=== PATIENT | male | born 1940 | race Hispanic/Latino ===

== ENCOUNTER 2020-02-05 11:30 | Observation (INO) | payer MEDICARE, OTHER ==
[~2020-02-05] VITALS: Ht 175.3 cm; Wt 81.6 kg
[~2020-02-05 11:30] MED LIST: GLUCOPHAGE500 MG PO; QUINAPRIL HCL10 MG PO; SIMVASTATIN10 MG PO
--- OUTSIDE RECORDS SUMMARY | 2020-02-05 11:34 | XMS REPORT | Summary of Care ---
Author ALEXANDREA Mooney M.A. Organization Unknown Address [facility] Phone Unavailable Care Team Providers Care Creative Technologist Name Role Phone FOREST Storm, LEONARDO Unavailable Unavailable KEVAN GOULD Unavailable Unavailable FOREST JAMES SD, LEONARDO Holloway Unavailable Unavailable Nathaniel Franco MD Unavailable Unavailable SUNITA JAMES, ALETA Mcknight Unavailable Unavailable ROCHELLE JAMES SD, JANEEN Unavailable Unavailable Unavailable Unavailable Functional Status Name Dates Details Functional status health issues are not documented Status: Name Dates Details Cognitive status health issues are not d ocumented Status: Problems Name Dates Details Need for pneumococcal vaccination (V03.8 2, Z23) Status: Active Insomnia (780.52, G47.00) Status: Active Encounter for diabetic foot exam (250.00 , E11.9) Status: Active Erectile dysfunction (607.84, N52.9) Status: Active Influenza vaccine needed (V04.81, Z23) Status: Active Counseling regarding advanced directives (V65.49, Z71.89) Status: Active Annual physical exam (V70.0, Z00.00) Status: Active Advance directive discussed with patient (V65.49, Z71.89) Status: Active Enlarged prostate without lower urinary tract symptoms (luts) (600.00, N40.0) Status: Active Hip osteoarthritis (715.95, M16.9) Status: Active Seasonal allergic rhinitis (477.9, J30.2 ) Status: Active Left ear pain (388.70, H92.02) Status: Active Left otitis media (382.9, H66.92) Status: Active Vitiligo (709.01, L80) Status: Active BMI 27.0-27.9,adult (V85.23, Z68.27) Status: Active Left upper quadrant pain (789.02, R10.12 ) Status: Active Diabetes mellitus type 2, controlled (25 0.00, E11.9) Status: Active Hyperlipidemia (272.4, E78.5) Status: Active Peripheral vascular disease (443.9, I73. 9) Status: Active Benign prostatic hyperplasia with lower urinary tract symptoms (600.01, N40.1) Status: Active Essential (primary) hypertension (401.9, I10) Status: Active Type 2 diabetes mellitus (250.00, E11.9) Status: Active Medications Name Dates Details Quinapril HCl - 20 MG Oral Tablet TAKE 1/2 (ONE-HALF) TABLET BY MOUTH ONCE DAILY Quantity: 45 LEONARDO GARG M.D. * Start : 04-Dec-2014 Active Simvastatin 20 MG Oral Tablet TAKE 1 TABLET BY MOUTH AT BEDTIME * Quantity: 90 Refills: 1 LEONARDO GARG M.D. * Start : 06-Apr-2014 Active metFORMIN HCl - 500 MG Oral Tablet TAKE 2 TABLETS BY MOUTH TWICE DAILY DIRECTED * Quantity: 360 Refills: 1 LEONARDO GARG M.D. * Start : 22-May-2013 Active Glimepiride 2 MG Oral Tablet TAKE 1 TABLET TWICE DAILY With meals * Quantity: 180 Refills: 1 LEONARDO GARG M.D. * Start : 31-May-2015 Active Tamsulosin HCl - 0.4 MG Oral Capsule TAKE 1 CAPSULE DAILY * Quantity: 90 Refills: 1 KEVAN GOULD * Start : 30-Oct-2019 Active Allergies and Adverse Reactions Name Dates Details No Known Drug Allergies (Allergy) Status : Active Past Medical History Name Dates Details History of allergic rhinitis (V12.69, Z8 7.09) Status: Resolved History of Arthralgia of temporomandibul ar joint (524.62, M26.629) Status: Resolved History of esophageal reflux (V12.79, Z8 7.19) Status: Resolved History of Impacted cerumen of right ear (380.4, H61.21) Status: Resolved History of Lightheadedness (780.4, R42) Status: Resolved History of Localized primary osteoarthri tis of lower leg, right (715.16, M17.11) Status: Resolved History of Lower abdominal pain (789.09, R10.30) Status: Resolved History of Pain in joint of left shoulde r (719.41, M25.512) Status: Resolved History of Right knee pain (719.46, M25. 561) Status: Resolved History of Symptoms of upper respiratory infection (URI) (786.09, R09.89) Status: Resolved History of TMJ (sprain of temporomandibu lar joint) (848.1, S03.40XA) Status: Resolved Procedures Procedure Dates Details [QLH] CULTURE, URINE, ROUTINE Date: 30-Oct-2019 [QLH] URINALYSIS, COMPLETE Date: 30-Oct-2019 History of Back Surgery Completed History of Rotator Cuff Repair Completed History of Cholecystectomy Completed History of Rotator Cuff Repair Completed Comments: Completed: Approx [id number] Immunization Name Dates Details Fluzone INJ Lot #: [id number] on: 22-May-2013 Fluzone INJ Lot #: [id number] on: 29-May-2014 Pneumococcal polysaccharide vaccine, 23 valent Lot #: [id number] on: 29-May-2014 Tdap Lot #: [id number] on: 28-Sep-2014 Fluvirin INJ Lot #: [id number] on: 28-May-2015 Fluzone High-Dose 0.5 ML Intramuscular S uspension Prefilled Syringe Lot #: [id number] on: 17-Jun-2016 Prevnar 13 Intramuscular Suspension Lot #: [id number] on: 19-Oct-2016 Fluzone High-Dose 0.5 ML Intramuscular S uspension Prefilled Syringe Lot #: [id number] on: 21-Jun-2017 Fluzone High-Dose 0.5 ML Intramuscular S uspension Prefilled Syringe Lot #: [id number] on: 16-Jun-2018 Shingrix 50 MCG Intramuscular Suspension Reconstituted on: 18-Nov-2018 Shingrix 50 MCG Intramuscular Suspension Reconstituted on: 18-Jan-2019 Fluzone High-Dose 0.5 ML Intramuscular S uspension Prefilled Syringe Lot #: [id number] on: 06-Jun-2019 Family History Name Dates Details Family history of Denial Of Any Signific ant Medical History Comments: Family History Status: Active Social History Name Dates Details - Status: Name Dates Details Ex-smoker (finding) Vital Signs Date Test Result Details :55 Systolic blood pressure 133 mm[Hg] Status: Diastolic blood pressure 82 mm[Hg] Status: Heart Rate 86 /min Status: :41 Systolic blood pressure 164 mm[Hg] Status: Comments : Location: [facility] [place]; Position: Sitting Diastolic blood pressure 84 mm[Hg] Status: Comment s: Location: [facility] [place]; Position: Sitting Heart Rate 102 /min Status: Body height 68 in Status: Weight 175 lb Status: Body mass index (BMI) [Ratio] 26.61 kg/m2 Status: Body surface area Derived from formula 1.93 m2 S tatus: Body temperature 97.3 f Status: Comments: Me thod: Temporal Respiratory rate 16 /min Status: Results Date Description Value Details [id number] [O] Urine Dipstick (In Office) Glucose pos (Abnormal) LEUKOCYTES neg (Normal) NITRITE neg (Normal) UROBILINOGEN neg (Normal) PROTEIN neg (Normal) pH 6 (Abnormal) URINE BLOOD neg (Normal) SPECIFIC GRAVITY 1.010 (Abnormal) KETONES neg (Normal) BILIRUBIN neg (Normal) COLOR URINE yellow (Normal) APPEARANCE CLEAR (Normal) Plan of Care Name Dates Details Planned Observations Planned Goals not documented Planned Encounters Appointment; LEONARDO GARG M.D. On: 15-Dec-2019 9:30 Interventions Provided Medication Changes* Tamsulosin HCl - 0.4 MG Oral Capsule - Start Labs/Procedures/Imaging* [QLH] CULTURE, URINE, ROUTINE; To Be Done: 30 Oct 2019 * [QLH] URINALYSIS, COMPLETE; To Be Done: 30 Oct 2019 * [O] Urine Dipstick (In Office); Done: 30 Oct 2019 * Tobacco Use Screening; Done: 30 Oct 2019 Plan* BPH - start tamsulosin; send urine testing as above; f/u if not improving * HTN - monitor BP; continue quinapril * DM - follow DM diet; continue glimepiride and metformin per PCP recommendations; monitor glucose * F/u with PCP as scheduled in December Instructions Name Dates Details Instructions not documented Encounters Appointment; VITALY DANIEL APRN Encounter Diagnosis: Problem not documented On: 17-Dec-2017 10:00 Appointment; LEONARDO GARG M.D. Encounter Diagnosis: Problem not documented On: 10-Feb-2018 13:30 Appointment; VITALY DANIEL APRN Encounter Diagnosis: Problem not documented On: 14-Mar-2018 8:30 Appointment; LEONARDO GARG M.D. Encounter Diagnosis: Problem not documented On: 16-Jun-2018 13:30 Appointment; LEONARDO GARG M.D. Encounter Diagnosis: Problem not documented On: 16-Jun-2018 13:30 Appointment; LEONARDO GARG M.D. Encounter Diagnosis: Problem not documented On: 11-Oct-2018 10:30 Appointment; LEONARDO GARG M.D. Encounter Diagnosis: Problem not documented On: 12-Jan-2019 13:30 Appointment; LEONARDO GARG M.D. Encounter Diagnosis: Problem not documented On: 14-Apr-2019 11:00 Appointment; JANEEN BYRD M.D. Encounter Diagnosis: Problem not documented On: 27-Apr-2019 8:15 Appointment; ALETA DORSEY M.D. Encounter Diagnosis: Problem not documented On: 16-May-2019 14:00 Appointment; VITALY DANIEL APRN Encounter Diagnosis: Problem not documented On: 06-Jun-2019 8:30 Appointment; VITALY DANIEL APRN Encounter Diagnosis: Problem not documented On: 16-Jun-2019 10:15 Appointment; LEONARDO GARG M.D. Encounter Diagnosis: Problem not documented On: 14-Aug-2019 11:00 Appointment; KEVAN LADD P.A. Encounter Diagnosis: Problem not documented On: 30-Oct-2019 9:00
--- OUTSIDE RECORDS SUMMARY | 2020-02-05 11:34 | XMS REPORT | Summary of Care ---
Author Author Keshia LORD ALEXANDREA [facility] Unknown Address Unknown Phone Unavailable Care Team Providers Care Wiping Rag Washer Name Role Phone FOREST Storm, LEONARDO Unavailable Unavailable JULEE P.AKEVAN Tejada Unavailable Unavailable FOREST JAMES SD, LEONARDO Holloway [...] TWICE DAILY DIRECTED * Quantity: 360 Refills: 0 LEONARDO GARG M.D. * Start : 22-May-2013 [...] S03.40XA) Status: Resolved Procedures Procedure Dates Details [QL] CULTURE, URINE, ROUTINE Date: 30-Oct-2019 [QLH] URINALYSIS, COMPLETE Date: 30-Oct-2019 History of Back Surgery Completed History of Rotator Cuff Repair Completed History of Cholecystectomy Completed History of Rotator Cuff Repair Completed Comments: Completed: Approx [id number] Immunization Name Dates Details Fluzone INJ Lot #: [id number] on: 22-May-2013 Fluzone INJ Lot #: [id number] on: 29-May-2014 Pneumococcal polysaccharide vaccine, 23 valent Lot #: [id number] on: 29-May-2014 Tdap Lot #: [id number] on: 28-Sep-2014 Fluvirin INJ Lot #: [id number] on: 28-May-2015 Fluzone High-Dose 0.5 ML Intramuscular S uspension Prefilled Syringe Lot #: [id number] on: 17-Jun-2016 Prevnar 13 Intramuscular Suspension Lot #: [id number] on: 19-Oct-2016 Fluzone High-Dose 0.5 ML Intramuscular S uspension Prefilled Syringe Lot #: [id number] on: 21-Jun-2017 Fluzone High-Dose 0.5 ML Intramuscular S uspension Prefilled Syringe Lot #: [id number] on: 16-Jun-2018 Shingrix 50 MCG Intramuscular Suspension Reconstituted on: 18-Nov-2018 Shingrix 50 MCG Intramuscular Suspension Reconstituted on: 18-Jan-2019 Fluzone High-Dose 0.5 ML Intramuscular S uspension Prefilled Syringe Lot #: [id number] on: 06-Jun-2019 Family History Name Dates Details [...] pressure 164 mm[Hg] Status: Comments : Location: [facility] [place]; Position: Sitting Diastolic blood pressure 84 mm[Hg] Status: Comment s: Location: [facility] [place]; Position: Sitting Heart Rate 102 /min Status: Body height 68 in Status: Weight 175 lb Status: Body mass index (BMI) [Ratio] 26.61 kg/m2 Status: Body surface area Derived from formula 1.93 m2 S tatus: Body temperature 97.3 f Status: Comments: Me thod: Temporal Respiratory rate 16 /min Status: Results Date Description Value Details [id number] [O] Urine Dipstick (In Office) Glucose pos [...] On: 15-Dec-2019 9:30 Interventions Provided Medication Changes* metFORMIN HCl - 500 MG Oral Tablet - Renew Instructions Name Dates Details Instructions not documented [...]
--- OUTSIDE RECORDS SUMMARY | 2020-02-05 11:34 | XMS REPORT ---
Author Author [facility] t Organization [facility] Address [address] [place] [address] Dr. Pringle [address] [place] [phone] Phone Unavailable Care Team Providers Care Irrigation District Manager Name Role Phone LEONARDO GARG MD PCP LEONARDO GARG M.D. Attphys Unavailable KEVAN LADD P.A. Attphys Unavailable VITALY DANIEL APRN Attphys Unavailable ALETA DORSEY M.D. Attphys Unavailable JANEEN BYRD M.D. Attphys Unavailable Osiel NOEL Attphys Unavailable VITALY DANIEL NP Attphys Unavailable LEXI GALICIA M.D. Attphys Unavailable ARON WHITMORE NP Attphys Unavailable OTONIEL MELISSA M.D. Attphys Unavailable ASUNCION GUALLPA M.D. Attphys Unavailable DUC LANDIS D.O. Attphys Unavailable Payers Payer Name Policy Type Policy Number Effective Date Expiration Date renee [employer] Medicare Advantage [id number] [facility] Problems Condition Name Condition Details Condition Category Status Onset Date Resolution Date Last Treatment Date Treating Clinician Comments Source History of allergic rhinitis History of allergic rhinitis Problem Re solved [facility] History of Arthralgia of temporomandibular joint Histo ry of Arthralgia of temporomandibular joint Problem Resolved [facility] History of esophageal reflux History of esophageal reflux Problem Re solved [facility] History of Impacted cerumen of right ear History of Im pacted cerumen of right ear Problem Resolved [facility] History of Lightheadedness History of Lightheadedness Problem Resolved [facility] History of Localized primary osteoarthritis of lower l eg, right History of Localized primary osteoarthritis of lower leg, right Problem Resolved [facility] History of Lower abdominal pain History of Lower abdominal pain Problem Resolved [facility] History of Pain in joint of left shoulder History of P ain in joint of left shoulder Problem Resolved [facility] History of Right knee pain History of Right knee pain Problem Resolved [facility] History of Symptoms of upper respiratory infection (UR I) History of Symptoms of upper respiratory infection (URI) Problem Resolved [facility] History of TMJ (sprain of temporomandibular joint) His tory of TMJ (sprain of temporomandibular joint) Problem Resolved [facility] Influenza vaccine needed Influenza vaccine needed Problem Active [facility] Insomnia Insomnia Problem Active [facility] Type 2 diabetes mellitus Type 2 diabetes mellitus Problem Active [facility] Erectile dysfunction Erectile dysfunction Problem Active [facility] Advance directive discussed with patient Advance direc tive discussed with patient Problem Active [facility] Annual physical exam Annual physical exam Problem Active [facility] Hip osteoarthritis Hip osteoarthritis Problem Active [facility] Seasonal allergic rhinitis Seasonal allergic rhinitis Problem Active [facility] Left ear pain Left ear pain Problem Active [facility] Left otitis media Left otitis media Problem Active [facility] Vitiligo Vitiligo Problem Active [facility] BMI 27.0-27.9,adult BMI 27.0-27.9,adult Problem Active [facility] Peripheral vascular disease Peripheral vascular disease Problem Active [facility] Benign prostatic hyperplasia with lower urinary tract symptoms Benign prostatic hyperplasia with lower urinary tract symptoms Problem Active [facility] Left upper quadrant pain Left upper quadrant pain Problem Active [facility] Essential (primary) hypertension Essential (primary) hypertensio n Problem Active [facility] Enlarged prostate without lower urinary tract symptoms (luts) Enlarged prostate without lower urinary tract symptoms (luts) Problem Active [facility] Hyperlipidemia Hyperlipidemia Problem Active [facility] Vaccines Prophylactic Need Against Influenza Vaccines Prophylactic Need Against Influenza Active 10/04/2013 [facility] Problem Active 2013-10-04 23:13:12 [facility] Type 2 Diabetes Mellitus Type 2 Diabetes Mellitus Active 10/04/2013 [facility] Problem Active 2013-10-04 23:13: 12 [facility] Hypertension Hype rtension Active 10/04/2013 [facility] Problem Active 2013-10-04 23:13:12 [facility] Hyperlipidemia Hype rlipidemia Active 10/04/2013 [facility] Problem Active 2013-10-04 23:13:12 [facility] Bilious Diarrhea Bili ous Diarrhea Active 10/04/2013 [facility] Problem Active 2013-10-04 23:13:12 [facility] TMJ Pain TMJ Pain Active 10/04/2013 [facility] Problem Active 2013-10-04 23:13:12 [facility] Allergies, Adverse Reactions, Alerts Allergy Name Allergy Type Status Severity Reaction(s) Onset Date Inacti ve Date Treating Clinician Comments Source No Known Drug Allergies No Known Drug Allergies Active [facility] Family History Family Member Diagnosis Comments Start Date Stop Date Source Unknown Family Member Family history of Denial Of Any Significant Medical History Family History [facility] Social History Social Habit Start Date Stop Date Quantity Comments Source Sex Assigned At Angie lemos Edgardo Alcohol intake 2016-06-16 00:00:00 2016-06-16 00:00:00 Current drinker of alcohol (finding) Darinel Reynoso Alcohol Comment 2016-06-16 00:00:00 2016-06-16 00:00:00 4 drinks per week Darinel Reynoso Social History 2013-10-04 23:13:12 2013-10-04 23:13:12 [facility] Smoking Status Start Date Stop Date Source Ex-smoker (finding) [facility] Never smoker Darinel moody Medications Ordered Medication Name Filled Medication Name Start Date Stop Da te Current Medication? Ordering Clinician Indication Dosage Frequency Signature (SIG) Comments Components Source Tamsulosin HCl - 0.4 MG Oral Capsule Tamsulosin HCl - 0.4 MG Oral Capsule 2019-10-30 00:00:00 Yes KEVAN Marie 1 QD TAKE 1 CAPSULE DAILY [facility] metFORMIN (GLUCOPHAGE) 500 MG tablet 2016-04-28 00:00:00 Yes Darinel Reynoso Glimepiride 2 MG Oral Tablet Glimepiride 2 MG Oral Tablet 2015-05-08 00:00:00 Yes LEONARDO GARG M.D. 1 Q0.5D TAKE 1 TABLET TWICE DAILY Wit h meals [facility] Quinapril HCl - 20 MG Oral Tablet Quinapril HCl - 20 MG Oral Tablet 2014-12-04 00:00:00 Yes LEONARDO GARG M.D. T TRISH 1/2 (ONE-HALF) TABLET BY MOUTH ONCE DAILY. [facility] Simvastatin 20 MG Oral Tablet Simvastatin 20 MG Oral Tablet 2013 00:00:00 Yes LEONARDO GARG M.D. TAKE 1 TABLET BY MOUT H AT BEDTIME [facility] Simvastatin 10 MG Oral Tablet 2013-09-22 22:46:42 Yes (Active) [facility] Naproxen 375 MG Oral Tablet 2013-09-21 06:00:00 Yes ; Start Date: 09/21/2013; End Date: 09/28/2013 (Active) [facility] Quinapril HCl 20 MG Oral Tablet 2013-05-22 22:16:25 Yes (Active) [facility] MetFORMIN HCl 500 MG Oral Tablet 2013-05-22 05:00:00 Yes ; Start Date: 05/22/2013; End Date: (Active) [facility] metFORMIN HCl - 500 MG Oral Tablet metFORMIN HCl - 500 MG Or al Tablet 2013-05-22 00:00:00 Yes LEONARDO GARG M.D. T TRISH 2 TABLETS BY MOUTH TWICE DAILY DIRECTED [facility] Quinapril HCl 20 MG Oral Tablet Yes ; Start Date: ; End Date: (Active) [facility] Simvastatin 10 MG Oral Tablet Yes ; Start Date: ; End Date: (Active) [facility] Immunizations Ordered Immunization Name Filled Immunization Name Date Status Comments Source Fluzone High-Dose 0.5 ML Intramuscular Suspension Prefilled Syringe 2019-06-06 08:36:00 Completed [facility] Shingrix 50 MCG Intramuscular Suspension Reconstituted 2019-01-18 00:00:00 Completed [facility] Shingrix 50 MCG Intramuscular Suspension Reconstituted 2018-11-18 00:00:00 Completed [facility] Fluzone High-Dose 0.5 ML Intramuscular Suspension Prefilled Syringe 2018-06-16 16:36:00 Completed [facility] Fluzone High-Dose 0.5 ML Intramuscular Suspension Prefilled Syringe 2017-06-21 14:25:00 Completed [facility] Prevnar 13 Intramuscular Suspension 2016-10-19 14:24:00 Co mpleted [facility] Fluzone High-Dose 0.5 ML Intramuscular Suspension Prefilled Syringe 2016-06-17 16:27:00 Completed [facility] Fluvirin INJ 2015-05-28 13:33:00 [facility] 2014-09-28 13:45:00 Completed [facility] Fluzone INJ 2014-05-29 14:35:00 Completed [facility] Pneumococcal polysaccharide vaccine, 23 valent 2014-05 14:35:00 Completed [facility] Fluzone INJ 2013-05-22 15:22:00 Completed [facility] Vital Signs Vital Name Observation Time Observation Value Comments Source Systolic blood pressure 2019-10-30 08:55:00 133 mm[Hg] [facility] Diastolic blood pressure 2019-10-30 08:55:00 82 mm[Hg] [facility] Heart Rate 2019-10-30 08:55:00 86 /min [facility] Systolic blood pressure 2019-10-30 08:41:00 164 mm[Hg] Loca tion: PRIETO; Position: Sitting [facility] Diastolic blood pressure 2019-10-30 08:41:00 84 mm[Hg] Loc ation: PRIETO; Position: Sitting [facility] Heart Rate 2019-10-30 08:41:00 102 /min [facility] Body height 2019-10-30 08:41:00 68 [in_us] [facility] Weight 2019-10-30 08:41:00 175 [lb_av] [facility] Body mass index (BMI) [Ratio] 2019-10-30 08:41:00 26.61 kg/m2 [facility] Body temperature 2019-10-30 08:41:00 97.3 [degF] Method: Temporal [facility] Respiratory rate 2019-10-30 08:41:00 16 /min [facility] BP Systolic 2019-08-14 10:39:00 113 mm[Hg] Location: ESTHER Positi on: Sitting [facility] BP Diastolic 2019-08-14 10:39:00 70 mm[Hg] Location: PRIETO; Positi on: Sitting [facility] Height 2019-08-14 10:39:00 68 [in_us] [facility] Weight 2019-08-14 10:39:00 177.3 [lb_av] [facility] Body Mass Index Calculated 2019-08-14 10:39:00 26.96 kg/m2 [facility] Temperature 2019-08-14 10:39:00 97.8 [degF] Method: Oral [facility] Heart Rate 2019-08-14 10:39:00 86 /min [facility] Respiration Rate 2019-08-14 10:39:00 16 /min [facility] BP Systolic 2019-06-16 10:08:00 132 mm[Hg] Location: ROWANE; Positi on: Sitting [facility] BP Diastolic 2019-06-16 10:08:00 74 mm[Hg] Location: ROWANE; Positi on: Sitting [facility] Height 2019-06-16 10:08:00 68 [in_us] [facility] Weight 2019-06-16 10:08:00 178 [lb_av] [facility] Body Mass Index Calculated 2019-06-16 10:08:00 27.07 kg/m2 [facility] Temperature 2019-06-16 10:08:00 98.2 [degF] Method: Temporal [facility] Respiration Rate 2019-06-16 10:08:00 16 /min [facility] Heart Rate 2019-06-16 10:08:00 83 /min [facility] BP Systolic 2019-06-06 08:26:00 133 mm[Hg] Location: PRIETO; Positi on: Sitting [facility] BP Diastolic 2019-06-06 08:26:00 74 mm[Hg] Location: PRIETO; Positi on: Sitting [facility] Height 2019-06-06 08:26:00 68 [in_us] [facility] Weight 2019-06-06 08:26:00 178 [lb_av] [facility] Body Mass Index Calculated 2019-06-06 08:26:00 27.07 kg/m2 [facility] Temperature 2019-06-06 08:26:00 98.3 [degF] Method: Temporal [facility] Respiration Rate 2019-06-06 08:26:00 16 /min [facility] Heart Rate 2019-06-06 08:26:00 80 /min [facility] BP Systolic 2019-05-16 14:06:00 129 mm[Hg] Location: LUE; Positi on: Sitting [facility] BP Diastolic 2019-05-16 14:06:00 78 mm[Hg] Location: LUE; Positi on: Sitting [facility] Height 2019-05-16 14:06:00 68 [in_us] [facility] Weight 2019-05-16 14:06:00 177.5 [lb_av] [facility] Body Mass Index Calculated 2019-05-16 14:06:00 26.99 kg/m2 [facility] Temperature 2019-05-16 14:06:00 97.9 [degF] Method: Temporal [facility] Heart Rate 2019-05-16 14:06:00 95 /min Location: L Brachial Artery; [facility] Respiration Rate 2019-05-16 14:06:00 16 /min Quality: [facility] BP Systolic 2019-04-27 08:24:00 138 mm[Hg] Location: LUE; Positi on: Sitting [facility] BP Diastolic 2019-04-27 08:24:00 79 mm[Hg] Location: LUE; Positi on: Sitting [facility] Height 2019-04-27 08:24:00 68 [in_us] [facility] Weight 2019-04-27 08:24:00 173.0625 [lb_av] [facility] Body Mass Index Calculated 2019-04-27 08:24:00 26.31 kg/m2 [facility] Temperature 2019-04-27 08:24:00 97.4 [degF] Method: Temporal [facility] Heart Rate 2019-04-27 08:24:00 75 /min [facility] Respiration Rate 2019-04-27 08:24:00 16 /min [facility] BP Systolic 2019-04-14 10:27:00 126 mm[Hg] Location: LUE; Positi on: Sitting [facility] BP Diastolic 2019-04-14 10:27:00 69 mm[Hg] Location: LUE; Positi on: Sitting [facility] Height 2019-04-14 10:27:00 68 [in_us] [facility] Weight 2019-04-14 10:27:00 176.1 [lb_av] [facility] Body Mass Index Calculated 2019-04-14 10:27:00 26.78 kg/m2 [facility] Temperature 2019-04-14 10:27:00 98.1 [degF] Method: Oral [facility] Respiration Rate 2019-04-14 10:27:00 16 /min [facility] Heart Rate 2019-04-14 10:27:00 90 /min [facility] BP Systolic 2019-01-12 13:16:00 103 mm[Hg] Location: ROW[place]; Positi on: Sitting [facility] BP Diastolic 2019-01-12 13:16:00 67 mm[Hg] Location: PRIETO; Positi on: Sitting [facility] Height 2019-01-12 13:16:00 68 [in_us] [facility] Weight 2019-01-12 13:16:00 175.4 [lb_av] [facility] Body Mass Index Calculated 2019-01-12 13:16:00 26.67 kg/m2 [facility] Temperature 2019-01-12 13:16:00 98.2 [degF] Method: Oral [facility] Heart Rate 2019-01-12 13:16:00 96 /min [facility] Respiration Rate 2019-01-12 13:16:00 16 /min [facility] BP Systolic 2018-10-11 10:53:00 127 mm[Hg] Location: PRIETO; Positi on: Sitting [facility] BP Diastolic 2018-10-11 10:53:00 73 mm[Hg] Location: PRIETO; Positi on: Sitting [facility] Height 2018-10-11 10:53:00 68 [in_us] [facility] Weight 2018-10-11 10:53:00 178.1 [lb_av] [facility] Body Mass Index Calculated 2018-10-11 10:53:00 27.08 kg/m2 [facility] Temperature 2018-10-11 10:53:00 97.7 [degF] Method: Oral [facility] Heart Rate 2018-10-11 10:53:00 96 /min [facility] Respiration Rate 2018-10-11 10:53:00 16 /min [facility] BP Systolic 2018-06-16 13:21:00 125 mm[Hg] Location: LUE; Positi on: Sitting [facility] BP Diastolic 2018-06-16 13:21:00 75 mm[Hg] Location: LUE; Positi on: Sitting [facility] Height 2018-06-16 13:21:00 68 [in_us] [facility] Weight 2018-06-16 13:21:00 179.1 [lb_av] [facility] Body Mass Index Calculated 2018-06-16 13:21:00 27.23 kg/m2 [facility] Temperature 2018-06-16 13:21:00 98 [degF] Method: Oral [facility] Heart Rate 2018-06-16 13:21:00 81 /min [facility] Respiration Rate 2018-06-16 13:21:00 16 /min [facility] BP Systolic 2018-03-14 08:07:00 120 mm[Hg] Location: LUE; Positi on: Sitting [facility] BP Diastolic 2018-03-14 08:07:00 66 mm[Hg] Location: LUE; Positi on: Sitting [facility] Height 2018-03-14 08:07:00 68 [in_us] [facility] Weight 2018-03-14 08:07:00 179 [lb_av] [facility] Body Mass Index Calculated 2018-03-14 08:07:00 27.22 kg/m2 [facility] Temperature 2018-03-14 08:07:00 97.3 [degF] Method: Temporal [facility] Heart Rate 2018-03-14 08:07:00 75 /min Location: L Radial; [facility] Respiration Rate 2018-03-14 08:07:00 16 /min Quality: Normal [facility] BP Systolic 2018-02-10 13:11:00 125 mm[Hg] Location: LUE; Positi on: Sitting [facility] BP Diastolic 2018-02-10 13:11:00 73 mm[Hg] Location: LUE; Positi on: Sitting [facility] Height 2018-02-10 13:11:00 68.5 [in_us] [facility] Weight 2018-02-10 13:11:00 177.0 [lb_av] [facility] Body Mass Index Calculated 2018-02-10 13:11:00 26.52 kg/m2 [facility] Temperature 2018-02-10 13:11:00 98.3 [degF] Method: Oral [facility] Heart Rate 2018-02-10 13:11:00 92 /min [facility] Respiration Rate 2018-02-10 13:11:00 16 /min [facility] BP Systolic 2017-10-19 13:11:00 120 mm[Hg] Location: PRIETO; Positi on: Sitting [facility] BP Diastolic 2017-10-19 13:11:00 69 mm[Hg] Location: PRIETO; Positi on: Sitting [facility] Height 2017-10-19 13:11:00 68.5 [in_us] [facility] Weight 2017-10-19 13:11:00 179.1 [lb_av] [facility] Body Mass Index Calculated 2017-10-19 13:11:00 26.84 kg/m2 [facility] Temperature 2017-10-19 13:11:00 97.9 [degF] Method: Oral [facility] Heart Rate 2017-10-19 13:11:00 88 /min [facility] Respiration Rate 2017-10-19 13:11:00 16 /min [facility] BP Systolic 2017-08-20 07:40:00 132 mm[Hg] Location: ESTHER Positi on: Sitting [facility] BP Diastolic 2017-08-20 07:40:00 80 mm[Hg] Location: PRIETO; Positi on: Sitting [facility] Height 2017-08-20 07:40:00 68.5 [in_us] [facility] Weight 2017-08-20 07:40:00 175 [lb_av] [facility] Body Mass Index Calculated 2017-08-20 07:40:00 26.22 kg/m2 [facility] Temperature 2017-08-20 07:40:00 98.9 [degF] Method: Temporal [facility] Heart Rate 2017-08-20 07:40:00 87 /min [facility] Respiration Rate 2017-08-20 07:40:00 16 /min [facility] BP Systolic 2017-08-09 11:22:00 130 mm[Hg] Location: ESTHER Positi on: Sitting [facility] BP Diastolic 2017-08-09 11:22:00 76 mm[Hg] Location: PRIETO; Positi on: Sitting [facility] Height 2017-08-09 11:22:00 68.5 [in_us] [facility] Weight 2017-08-09 11:22:00 175.125 [lb_av] [facility] Body Mass Index Calculated 2017-08-09 11:22:00 26.24 kg/m2 [facility] Temperature 2017-08-09 11:22:00 98.7 [degF] Method: Temporal [facility] Heart Rate 2017-08-09 11:22:00 102 /min [facility] Respiration Rate 2017-08-09 11:22:00 16 /min Quality: Normal [facility] Procedures Procedure Date / Time Performed Performing Clinician Sour e [[facility]] CULTURE, URINE, ROUTINE 2019-10-30 00:00:00 [facility] [[facility]] URINALYSIS, COMPLETE 2019-10-30 00:00:00 [facility] [[facility]] HEMOGLOBIN A1c 2019-08-14 00:00:00 [facility] Extremity lower art Dopp bilat [place] w press [id number] 2019-08-14 00 :00:00 [facility] US Abdomen complete [id number] 2019-06-06 00:00:00 [facility]] HEMOGLOBIN A1c 2019-04-14 00:00:00 [facility] [[facility]] CBC (INCLUDES DIFF/PLT) 2019-01-12 00:00:00 [facility] [[facility]] CMP W/EGFR 2019-01-12 00:00:00 [facility] [[facility]] HEMOGLOBIN A1c 2019-01-12 00:00:00 [facility] [[facility]] LIPID PANEL 2019-01-12 00:00:00 [facility] [[facility]] MICROALBUMIN, RANDOM URINE (W/CREATININE) 2019-01-12 00:00 :00 [facility] [[facility]] TSH, 3RD GENERATION 2019-01-12 00:00:00 Un [facility] [[facility]] HEMOGLOBIN A1c 2018-10-11 00:00:00 [facility] X-ray of chest, single view 2018-08-29 00:00:[address] [address] [facility] [place] [[facility]] HEMOGLOBIN A1c 2018-06-16 00:00:00 [facility] [[facility]] MICROALBUMIN, RANDOM URINE (W/CREATININE) 2018-03-14 00:00 :00 [facility] [[facility]] CBC (INCLUDES DIFF/PLT) 2018-02-10 00:00:00 [facility] [[facility]] CMP W/EGFR 2018-02-10 00:00:00 [facility] [[facility]] HEMOGLOBIN A1c 2018-02-10 00:00:00 [facility] [[facility]] LIPID PANEL 2018-02-10 00:00:00 [facility] [[facility]] TSH, 3RD GENERATION 2018-02-10 00:00:00 Un [facility] [[facility]] HEMOGLOBIN A1c 2017-10-19 00:00:00 [facility] History of Back Surgery [facility] History of Rotator Cuff Repair [facility] History of Cholecystectomy [facility] Plan of Care Planned Activity Planned Date Details Comments Source Future Scheduled Test 2020-04-06 00:00:00 INFLUENZA VACCINE [code = INFLUENZA VACCINE] [facility] Future Scheduled Test 2005 00:00:00 65+ PNEUMOCOCCAL V ACCINE (1 of 2 - PCV13) [code = 65+ PNEUMOCOCCAL VACCINE (1 of 2 - PCV13)] [facility] Future Scheduled Test 1990 00:00:00 SHINGLES VACCINES (#1) [code = SHINGLES VACCINES (#1)] [facility] Scheduled Test Plan of Care [code = 36244-0] [facility] Future Scheduled Test Plan of Care [code = 86934-6] [facility] Encounters Start Date/Time End Date/Time Encounter Type Admission Type Attendi [facility] Facility Care Department Encounter ID Source 2019-12-15 09:30:2019-12-15 09:30:00 Appointment; LEONARDO GARG M.D. WALTON, HAROLD, M.D. [facility], [address] [id number] [facility] 2019-10-30 09:00:00 2019-10-30 09:00:00 Appointment; SAYRA LADD P.A. SPOONER, JOSEPH, P.A. [facility] [id number] [facility] 2019-08-14 11:00:00 2019-08-14 11:00:00 Appointment; LEONARDO GARG M.D. WALTON, HAROLD, M.D. [facility], [address] [id number] [facility] 2019-06-16 10:15:00 2019-06-16 10:15:00 Appointment; MONICA DANIEL APRN HOANG, CHRISTINA, APRN [facility], [address] [id number] [facility] 2019-06-06 08:30:00 2019-06-06 08:30:00 Appointment; MONICA DANIEL APRN HOANG, CHRISTINA, APRN [facility], [address] [id number] [facility] 2019-05-16 14:00:00 2019-05-16 14:00:00 Appointment; JAMES DORSEY M.D. PERKISON, WILLIAM, M.D. [facility] [id number] [facility] 2019-04-27 08:15:00 2019-04-27 08:15:00 Appointment; JANEEN BYRD M.D. VAZQUEZ, NOEMI, M.D. [facility] [id number] [facility] 2019-04-14 11:00:00 2019-04-14 11:00:00 Appointment; LEONARDO GARG M.D. WALTON, HAROLD, M.D. [facility], [address] [id number] [facility] 2019-01-12 13:30:00 2019-01-12 13:30:00 Appointment; GARGLEONARDO M.D. WALTON, HAROLD, M.D. [facility] [id number] [facility] 2018-10-11 10:30:00 2018-10-11 10:30:00 Appointment; LEONARDO GARG M.D. WALTON, HAROLD, M.D. [facility] [id number] [facility] 2018-08-29 10:20:00 2018-08-29 14:20:00 Departed Emergency Room 1 IRA NOEL [facility] [id number] [facility] 2018-06-16 13:30:00 2018-06-16 13:30:00 Appointment; LEONARDO GARG M.D. WALTON, HAROLD, M.D. [facility] [id number] [facility] 2018-06-16 13:30:00 2018-06-16 13:30:00 Appointment; LEONARDO GARG M.D. WALTON, HAROLD, M.D. [facility] [id number] [facility] 2018-03-14 08:30:00 2018-03-14 08:30:00 Appointment; MONICA DANIEL, VITALY ALDANA APRN [facility] [id number] [facility] 2018-02-10 13:30:00 2018-02-10 13:30:00 Appointment; LEONARDO GARG M.D. WALTON, HAROLD, M.D. [facility] [address] [id number] [facility] 2017-12-17 10:00:00 2017-12-17 10:00:00 Appointment; MONICA DANIEL APRN HOANG, CHRISTINA, APRN [facility] [id number] [facility] 2017-10-19 13:15:00 2017-10-19 13:15:00 Appointment; LEONARDO GARG M.D. WALTON, HAROLD, M.D. [facility] [id number] [facility] 2017-08-20 07:30:00 2017-08-20 07:30:00 Appointment; MONICA DANIEL NP HOANG, CHRISTINA, NP [facility] [address] [id number] [facility] 2017-08-09 11:00:00 2017-08-09 11:00:00 Appointment; ALESIA GALICIA M.D. WILLISTON, HUBERT, M.D. [facility] [id number] [facility] 2017-06-21 13:30:00 2017-06-21 13:30:00 Appointment; LEONARDO GARG M.D. WALTON, HAROLD, M.D. [facility] UTP [id number] [facility] 2017-02-17 09:30:00 2017-02-17 09:30:00 Appointment; MONICA DANIEL NP HOANG, CHRISTINA, NP UTP UTP [id number] [facility] 2016-10-19 13:15:00 2016-10-19 13:15:00 Appointment; LEONARDO GARG M.D. WALTON, HAROLD, M.D. [facility]TP [id number] [facility] 2016-06-25 18:45:00 2016-06-25 18:45:00 Appointment; ARON WHITMORE NP TRAN, THUY, NP UTP UTP [id number] [facility] 2016-06-17 15:30:00 2016-06-17 15:30:00 Appointment; LEONARDO GARG M.D. WALTON, HAROLD, M.D. [facility] UTP [id number] [facility] 2016-01-30 12:45:00 2016-01-30 12:45:00 Appointment; LEONARDO GARG M.D. WALTON, HAROLD, M.D. [facility] [address] [id number] [facility] 2015-12-26 14:00:00 2015-12-26 14:00:00 Appointment; OTONIEL MELISSA M.D. HUANG, EDDIE, M.D. [facility] UTP [id number] [facility] 2015-12-19 14:00:00 2015-12-19 14:00:00 Appointment; OTONIEL MELISSA M.D. HUANG, EDDIE, M.D. [facility] UTP [id number] [facility] 2015-12-12 14:00:00 2015-12-12 14:00:00 Appointment; OTONIEL MELISSA M.D. HUANG, EDDIE, M.D. U[facility] UTP [id number] [facility] 2015-11-21 15:30:00 2015-11-21 15:30:00 Appointment; OTONIEL MELISSA M.D. HUANG, EDDIE, M.D. [facility] UTP [id number] [facility] 2015-11-04 11:15:00 2015-11-04 11:15:00 Appointment; KARYN GUALLPA M.D. BORTOLOTTI, JULIE, M.D. [facility] UTP [id number] [facility] 2015-10-03 12:00:00 2015-10-03 12:00:00 Appointment; MONICA DANIEL NP HOANG, CHRISTINA, NP UTP UTP [id number] [facility] 2015-08-19 14:45:00 2015-08-19 14:45:00 Appointment; DUC LANDIS D.O. YEH, SHAO-CHUN, D.O. UTP UTP [id number] [facility] 2014-01-22 13:15:00 2013-10-04 23:13:12 FUP, Provider: LEONARDO SERNA, Status: Dharmesh, Time: 1:15 PM [facility] [id number] [facility] 2013-10-04 17:13:12 2013-10-04 23:13:12 AUDIT [facility] [id number] [facility] 2013-10-04 17:13:12 2013-10-04 17:13:12 Outpatient MHIEA LT [facility]IEALT [id number] 2013-09-25 15:32:16 2013-09-25 21:32:15 AUDIT [facility] [id number] [facility] 2013-09-25 15:32:16 2013-09-25 15:32:15 Outpatient MHIEA LT [facility]IEALT [id number] 2013-09-22 16:46:43 2013-09-22 22:46:42 AUDIT MHIEALT [facility] [id number] [facility] 2013-09-22 16:46:43 2013-09-22 16:46:42 Outpatient MHIEA LT [facility]IEALT [id number] 2013-09-21 13:34:14 2013-09-21 19:34:13 AUDIT [facility]ALT [id number] [facility] 2013-09-21 13:34:14 2013-09-21 13:34:13 Outpatient MHIEA LT [facility]IEALT [id number] 2013-09-21 12:45:00 2013-05-22 22:16:25 FUP, Provider: LEONARDO SERNA, Status: Pen, Time: 12:45 PM [facility] [id number] [facility] 2013-05-22 17:16:26 2013-05-22 22:16:25 AUDIT [facility] IEALT [id number] [facility] 2013-05-22 17:16:26 2013-05-22 17:16:25 Outpatient MHIEA LT MHIEALT [id number] Results Test Description Test Time Test Comments Results Result Comments Source [O] Urine Dipstick (In Office) 2019-10-30 09:26:00 Test Item Glucose (test code = Glucose) pos A LEUKOCYTES (test code = LEUKOCYTES) neg N NITRITE; Normal (test code = 78598-8) neg N UROBILINOGEN; Normal (test code = 86405-6) neg N PROTEIN; Normal (test code = 87567-2) neg N pH (test code = pH) 6 A URINE BLOOD; Normal (test code = 14814-4) neg N SPECIFIC GRAVITY; Abnormal (test code = 2965-2) 1.010 A KETONES; Normal (test code = 47284-5) neg N BILIRUBIN; Normal (test code = 44649-7) neg N COLOR URINE; Normal (test code = 5778-6) yellow N APPEARANCE; Normal (test code = 5767-9) CLEAR N [facility]] URINALYSIS, [id number] 00:00:00* Test Item Value Reference Range Interpretation Comments COLOR; Normal (test code = 5778-6) YELLOW YELLOW N APPEARANCE (test code = APPEARANCE) CLEAR CLEAR N SPECIFIC GRAVITY; Normal (test code = 2965-2) 1.014 1.001-1. 035 N PH; Normal (test code = 2756-5) 6.0 5.0-8.0 N GLUCOSE; Abnormal (test code = 1547-9) 2+ NEGATIVE A BILIRUBIN; Normal (test code = 30857-1) NEGATIVE NEGATIVE N KETONES; Normal (test code = 09474-0) NEGATIVE NEGATIVE N OCCULT BLOOD; Normal (test code = 52864-6) NEGATIVE NEGATIVE N PROTEIN; Normal (test code = 28412-5) NEGATIVE NEGATIVE N NITRITE; Normal (test code = 90023-4) NEGATIVE NEGATIVE N LEUKOCYTE ESTERASE (test code = LEUKOCYTE ESTERASE) NEGATIVE NE GATIVE N WBC; Normal (test code = 6690-2) NONE SEEN < OR = 5 N RBC; Normal (test code = 789-8) NONE SEEN < OR = 2 N SQUAMOUS EPITHELIAL CELLS; Normal (test code = 62469-3) NONE SEEN < OR = 5 N BACTERIA; Normal (test code = 630-4) NONE SEEN NONE SEEN N HYALINE CAST; Normal (test code = 76478-7) NONE SEEN NONE SEEN N [facility]] CULTURE, URINE, [id number] 00:00:00* Test Item Value Reference Range Interpretation Comments CULTURE (test code = CULTURE) See Comment CULTURE, URINE, ROUTINE Micro Number: [id number] Test Status: Final Specimen Source: URINE Specimen Quality: Adequate Result: Multiple organisms present, each less than 10,000 CFU/mL. These organisms, commonly found on external and internal genitalia, are considered to be colonizers. No further testing performed. [facility]icians[facility] Extremity lower art Dopp bilat [employer] w press [id number] 2019-08-21 13:02:00Please refer to heart lab report, located under Vascular in CARE4.--Electronically Signed by: Bridger Valentin 08/21/1917:29FINAL REPORTUn[facility]] HEMOGLOBIN A1c 2019-08-14 12:56:00* Test Item Value Reference Range Interpretation Comments HEMOGLOBIN A1c; Above High Threshold (test code = 4548-4) 7.8 {% of total} <5.7 For someone without known diabetes, a he moglobin H4iaerun of 6.5% or greater indicates that they may have diabetes and this should be confirmed with a follow-up test. For someone with known diabetes, a value <7% indicates that their diabetes is well controlled and a value greater than or equal to 7% indicates suboptimal control. A1c targets should be individualized based on duration of diabetes, age, comorbid conditions, and other considerations. Currently, no consensus exists regarding use ofhemoglobin A1c for diagnosis of diabetes for children. [facility] Abdomen complete [id number] 08:35:00EXAM: US ABDOMEN COMPLETEDATE: 06/12/2019 8:35 CDTINDICATION: - R10.12 Left upper quadrant painADDITIONAL INFORMATION: None.COMPARISON: None.TECHNIQUE: Multip lanar grayscale and color Doppler ultrasound of the abdomen.FINDINGS:Liver:Span: 14.8 cmEchogenicity: Increased throughout.Surface nodularity: Normal.Mass (size and location): None.Portal vein: 13.3 mm with hepatopedal flow.Bile ducts: Com mon bile duct diameter: 5.6 mm Intrahepatic ducts: Normal.Gallbladder: Postcho lecystectomy.Pancreas: Head and Body: Normal. Tail: obscured by overlying Burak pleen: Craniocaudal length: 11.5 cm with no focal mass.Right kidney: Size: 11 x 5.6 x 5.8 cmHydronephrosis: None.Echogenicity: Normal.Mass/Stone/Cyst (size and location): None.Left kidney: Size: 10.6 x 4.6 x 5.3 cmHydronephrosis: N one.Echogenicity: Normal.Mass/Stone/Cyst (size and location): None.Abdominal aor ta and IVC: The aorta is 2.3 cm in AP dimension proximally. It tapers normally. Views ofthe IVC were unremarkable.Ascites: NoneIMPRESSION:1. Increased echogen icity of the liver. This may represent hepatic steatosis.2. The portal vein is s lightly dilated. This is nonspecific but could be anearly sign of portal venous hypertension.3. No significant abnormality identified in the left upper quadrant .--Read by: Sal Bella MDDictated Date/time: 06/12/19 09:25Electronica lly Signed by: Sal Bella MD 06/12/1909:35FINAL REP ORTUnCentral [facility] Medical Center [facility]] HEMOGLOBIN [id number] 14:17:00* Test Item Value Reference Range Interpretation Comments HEMOGLOBIN A1c; Above High Threshold (test code = 4548-4) 7.2 {% of total} <5.7 For someone without known diabetes, a he [facility] K7cagmpq of 6.5% or greater indicates that they may have diabetes and this should be confirmed with a follow-up test. For someone with known diabetes, a value <7% indicates that their diabetes is well controlled and a value greater than or equal to 7% indicates suboptimal control. A1c targets should be individualized based on duration of diabetes, age, comorbid conditions, and other considerations. Currently, no consensus exists regarding use ofhemoglobin A1c for diagnosis of diabetes for children. [facility]] LIPID [id number] 00:00:00* Test Item Value Reference Range Interpretation Comments CHOLESTEROL, TOTAL; Normal (test code = 2093-3) 118 mg/dl <200 N HDL CHOLESTEROL; Normal (test code = 2085-9) 42 mg/dl >40 N TRIGLYCERIDES; Normal (test code = 2571-8) 129 mg/dl <150 N LDL-CHOLESTEROL; Normal (test code = 16034-5) 55 {MG/DL SAILAJA} N Reference range: <100 Desirable range <100 mg/dL for primary prevention; <70 mg/dL for patients with CHD or diabetic patients with > or = 2 CHD risk factors. LDL-C is now calculated using the Salvador-Mendez calculation, which is a validated novel method providing better accuracy than the Friedewald equation in the estimation of LDL-C. Salvador CLINTON et al. [place]. 2013;310(19): 1338-9555 (http ://education.[employer].com/faq/PEO860) CHOL/HDLC RATIO (test code = CHOL/HDLC RATIO) 2.8 {CALC} <5.0 N NON HDL CHOLESTEROL (test code = NON HDL CHOLESTEROL) 76 {MG/DL CA L} <130 N For patients with diabetes plus 1 major ASCVD risk factor, treating to a non-HDL-C goal of <100 mg/dL (LDL-C of <70 mg/dL) is considered a therapeutic option. [facility]] MICROALBUMIN, RANDOM URINE (W/CREATININE) 2019-01-12 00:00:00* Test Item Value Reference Range Interpretation Comments CREATININE, RANDOM URINE (test code = CREATININE, RANDOM URINE) 62 mg/dl 20-320 N MICROALBUMIN (test code = MICROALBUMIN) 0.6 mg/dl N Reference RangeNot established MICROALBUMIN/CREATININE RATIO, RANDOM UR INE (test code = MICROALBUMIN/CREATININE RATIO, RANDOM URINE) 10 {MCG/MG CRE} <30 N The ADA de fines abnormalities in albuminexcretion as follows: Category Result (mcg/mg creatinine) Normal <30Microalbuminuria 30-299 Clinical albuminuria > OR = 300 The ADA recommends that at least two of threespecimens collected within a 3-6 month period beabnormal before considering a patient to bewithin a diagnostic category. [facility]] CMP [id number] 00:00:00* Test Item Value Reference Range Interpretation Comments GLUCOSE; Above High Threshold (test code = 1547-9) 159 mg/dl 65- 99 Fasting reference interval For someone without known diabetes, a glucosevalue >125 mg/dL indicates that they may havediabetes and this should be confirmed with afollow- up test. UREA NITROGEN (BUN) (test code = UREA NITROGEN (BUN)) 20 mg/dl 7-25 N CREATININE (test code = CREATININE) 0.97 mg/dl 0.70-1.18 N For patients >49 years of age, the reference limitfor Creatinine is approximately 13% higher for peopleidentified as -Gabonese. eGFR NON- (test code = eGFR NON-MOISES N GABONESE) 74 {ML/MIN/1.7} > OR = 60 N eGFR (test code = eGFR ) 86 {ML/MIN/1.7} > OR = 60 N BUN/CREATININE RATIO (test code = BUN/CREATININE RATIO) NOT APPLICA BLE 6-22 SODIUM (test code = SODIUM) 139 mmol/L 135-146 N POTASSIUM (test code = POTASSIUM) 4.5 mmol/L 3.5-5.3 N CHLORIDE (test code = CHLORIDE) 105 mmol/L 98-110 N CARBON DIOXIDE (test code = CARBON DIOXIDE) 25 mmol/L 20-32 N CALCIUM (test code = CALCIUM) 9.6 mg/dl 8.6-10.3 N PROTEIN, TOTAL (test code = PROTEIN, TOTAL) 6.8 g/dl 6.1-8.1 N ALBUMIN (test code = ALBUMIN) 4.6 g/dl 3.6-5.1 N GLOBULIN (test code = GLOBULIN) 2.2 {G/DL CALC} 1.9-3.7 N ALBUMIN/GLOBULIN RATIO (test code = ALBUMIN/GLOBULIN RATIO) 2.1 {CALC} 1.0-2.5 N BILIRUBIN, TOTAL; Normal (test code = 90978-9) 0.5 mg/dl 0.2-1.2 N ALKALINE PHSPHATASE (test code = ALKALINE PHSPHATASE) 48 u/l 40-115 N AST; Normal (test code = 1916-6) 12 u/l 10-35 N ALT; Normal (test code = 1742-6) 11 u/l 9-46 N [facility]] CBC (INCLUDES DIFF/PLT)2019-01-12 00:00:00* Test Item Value Reference Range Interpretation Comments WHITE BLOOD CELL COUNT (test code = WHITE BLOOD CELL COUNT) 5.8 {Thousand/u} 3.8-10.8 N RED BLOOD CELL COUNT (test code = RED BLOOD CELL COUNT) 4.66 {Million/uL} 4.20-5.80 N HEMAGLOBIN; Normal (test code = 32232-9) 13.7 g/dl 13.2-17.1 N HEMATOCRIT; Normal (test code = 4544-3) 40.1 % 38.5-50.0 N MCV; Normal (test code = 787-2) 86.1 fL 80.0-100.0 N MCHC; Normal (test code = 70232-8) 34.2 g/dl 32.0-36.0 N RDW; Normal (test code = 788-0) 13.3 % 11.0-15.0 N PLATELET COUNT; Normal (test code = 777-3) 225 {Thousand/u} 140-400 N MPV; Normal (test code = 56981-0) 11.0 fL 7.5-12.5 N ABSOLUTE NEUTROPHILS (test code = ABSOLUTE NEUTROPHILS) 3654 {cells/uL} 5700-2689 N ABSOLUTE LYMPHOCYTES (test code = ABSOLUTE LYMPHOCYTES) 1363 {cells/uL} 850-3900 N ABSOLUTE MONOCYTES (test code = ABSOLUTE MONOCYTES) 481 {cells/uL} 200-950 N ABSOLUTE EOSINOPHILS (test code = ABSOLUTE EOSINOPHILS) 249 {cells/ uL} 15-500 N ABSOLUTE BASOPHILS (test code = ABSOLUTE BASOPHILS) 52 {cells/uL} 0 -200 N NEUTROPHILS (test code = NEUTROPHILS) 63 % N LYMPHOCYTES (test code = LYMPHOCYTES) 23.5 % N MONOCYTES; Normal (test code = 95196-0) 8.3 % N EOSINOPHILS; Normal (test code = 75116-3) 4.3 % N BASOPHILS; Normal (test code = 13769-2) 0.9 % N [facility]] TSH, 3RD [id number] 00:00:00* Test Item Value Reference Range Interpretation Comments TSH; Normal (test code = 41022-7) 1.86 {MIU/L} 0.40-4.50 N [facility]] HEMOGLOBIN [id number] 00:00:00* Test Item Value Reference Range Interpretation Comments HEMOGLOBIN A1c; Above High Threshold (test code = 4548-4) 7.2 {% of total} <5.7 For someone without known diabetes, a he moglobin O2axapra of 6.5% or greater indicates that they may have diabetes and this should be confirmed with a follow-up test. For someone with known diabetes, a value <7% indicates that their diabetes is well controlled and a value greater than or equal to 7% indicates suboptimal control. A1c targets should be individualized based on duration of diabetes, age, comorbid conditions, and other considerations. Currently, no consensus exists regarding use ofhemoglobin A1c for diagnosis of diabetes for children. [facility]] HEMOGLOBIN [id number] 10:26:00* Test Item Value Reference Range Interpretation Comments HEMOGLOBIN A1c; Above High Threshold (test code = 4548-4) 7.1 {% of total} <5.7 For someone without known diabetes, a he moglobin T5svcfvq of 6.5% or greater indicates that they may have diabetes and this should be confirmed with a follow-up test. For someone with known diabetes, a value <7% indicates that their diabetes is well controlled and a value greater than or equal to 7% indicates suboptimal control. A1c targets should be individualized based on duration of diabetes, age, comorbid conditions, and other considerations. Currently, no consensus exists regarding use ofhemoglobin A1c for diagnosis of diabetes for children. [facility] PhysiciansInfluenza Virus Types A,B [id number] 13:05:00* Test Item Value Reference Range Interpretation Comments Influenza Virus Types A,B Antigen (test code = 49902-1) NEGATIVE NEGATIVE [facility] A Streptococcus [id number] 13:05:00* Test Item Value Reference Range Interpretation Comments Group A Streptococcus Screen (test code = 90521-6) NEGATIVE [facility]G [facility]IVE [facility]2018-08-29 11:57:00 [facility] [address] [address] Patient Name: ALEXANDREA BENITEZ MR #: [id number] : 1940 Age/Sex: 77/M Req #: [id number] Adm Physician: Ordered by: AMARJIT WADE NP Report #: [id number] Location: ER Room/Bed: Procedure: [id number] DX/CHEST SINGLE (NOT PORTABLE) Exam Date: 08/29/18 E xam Time: 1140 REPORT STATUS: Danita d EXAMINATION: CHEST SINGLE (NOT PORTABLE) INDICATION: Cough. COMPARISON: None FINDINGS: TUBES and LINES: None. Overlying artifa ct in the thoracic inlet. LUNGS: Mild bibasilar subsegmental atelectasis. There is no evidence of pneumonia or pulmonary edema. PLEURA: No pleura l effusion or pneumothorax. HEART AND MEDIASTINUM: The cardiomediastinal s ilhouette is unremarkable. BONES AND SOFT TISSUES: No acute osseous le mary. Soft tissues are unremarkable. UPPER ABDOMEN: No free air under th e diaphragm. IMPRESSION: No acute thoracic abnormality. Sign ed by: Dr. Cb Villegas M.D. on 08/29/2018 11:58 AM Dictated By: PRECIOUS VILLEGAS MD, MD 1158 COPY TO: LYNNE WADE COLD ROLL INSPECTOR [[facility]] HEMOGLOBIN [id number] 08:34:00* Test Item Value Reference Range Interpretation Comments HEMOGLOBIN A1c; Above High Threshold (test code = 4548-4) 7.1 {% of total} <5.7 For someone without known diabetes, a he moglobin A6sftnnz of 6.5% or greater indicates that they may have diabetes and this should be confirmed with a follow-up test. For someone with known diabetes, a value <7% indicates that their diabetes is well controlled and a value greater than or equal to 7% indicates suboptimal control. A1c targets should be individualized based on duration of diabetes, age, comorbid conditions, and other considerations. Currently, no consensus exists regarding use ofhemoglobin A1c for diagnosis of diabetes for children. [facility] PhysiciansNegative Retinal Eye Exam (Diabetic)2018-04-19 05:00:00* Test Item Value Reference Range Interpretation Comments Negative Diabetic Eye Screening (test code = Negative Diabetic Eye Screening) [id number] [facility]] MICROALBUMIN, RANDOM URINE (W/CREATININE) 2018-03-14 00:00:00* Test Item Value Reference Range Interpretation Comments CREATININE, RANDOM URINE (test code = CREATININE, RANDOM URINE) 61 mg/dl 20-370 N MICROALBUMIN (test code = MICROALBUMIN) 0.6 mg/dl N Reference RangeNot established MICROALBUMIN/CREATININE RATIO, RANDOM UR INE (test code = MICROALBUMIN/CREATININE RATIO, RANDOM URINE) 10 {MCG/MG CRE} <30 N The ADA de fines abnormalities in albuminexcretion as follows: Category Result (mcg/mg creatinine) Normal <30Microalbuminuria 30-299 Clinical albuminuria > OR = 300 The ADA recommends that at least two of threespecimens collected within a 3-6 month period beabnormal before considering a patient to bewithin a diagnostic category. [facility]] LIPID [id number] 13:52:00* Test Item Value Reference Range Interpretation Comments CHOLESTEROL, TOTAL; Normal (test code = 2093-3) 192 mg/dl <200 N HDL CHOLESTEROL; Normal (test code = 2085-9) 49 mg/dl >40 N TRIGLYCERIDES; Above High Threshold (test code = 2571-8) 170 mg/dl <150 LDL-CHOLESTEROL; Above High Threshold (test code = 46791-1) 114 {MG/DL SAILAJA} Reference range: <100 Desirable range <1 00 mg/dL for primary prevention; <70 mg/dL for patients with CHD or diabetic patients with > or = 2 CHD risk factors. LDL-C is now calculated using the Janak calculation, which is a validated novel method providing better accuracy than the Friedewald equation in the estimation of LDL-C. Salvador SS et al. [place]. 2013;310(05): 8994-2981 (http ://education.[employer]/faq/AGR326) CHOL/HDLC RATIO (test code = CHOL/HDLC RATIO) 3.9 {CALC} <5.0 N NON HDL CHOLESTEROL (test code = NON HDL CHOLESTEROL) 143 {MG/DL C AL} <130 For patients with diabetes plus 1 major ASCVD risk factor, treating to a non-HDL-C goal of <100 mg/dL (LDL-C of <70 mg/dL) is considered a therapeutic option. [facility] [facility] CMP [id number] 13:52:00* Test Item Value Reference Range Interpretation Comments GLUCOSE; Above High Threshold (test code = 1547-9) 134 mg/dl 65- 99 Fasting reference interval For someone without known diabetes, a glucosevalue >125 mg/dL indicates that they may havediabetes and this should be confirmed with afollow- up test. UREA NITROGEN (BUN) (test code = UREA NITROGEN (BUN)) 16 mg/dl 7-25 N CREATININE (test code = CREATININE) 1.00 mg/dl 0.70-1.18 N For patients >49 years of age, the reference limitfor Creatinine is approximately 13% higher for peopleidentified as -Gabonese. eGFR NON- (test code = eGFR NON-MOISES N GABONESE) 72 {ML/MIN/1.7} > OR = 60 N eGFR (test code = eGFR ) 84 {ML/MIN/1.7} > OR = 60 N BUN/CREATININE RATIO (test code = BUN/CREATININE RATIO) NOT APPLICA BLE 6-22 SODIUM (test code = SODIUM) 139 mmol/L 135-146 N POTASSIUM (test code = POTASSIUM) 4.8 mmol/L 3.5-5.3 N CHLORIDE (test code = CHLORIDE) 102 mmol/L 98-110 N CARBON DIOXIDE (test code = CARBON DIOXIDE) 26 mmol/L 20-31 N CALCIUM (test code = CALCIUM) 9.6 mg/dl 8.6-10.3 N PROTEIN, TOTAL (test code = PROTEIN, TOTAL) 7.2 g/dl 6.1-8.1 N ALBUMIN (test code = ALBUMIN) 4.6 g/dl 3.6-5.1 N GLOBULIN (test code = GLOBULIN) 2.6 {G/DL CALC} 1.9-3.7 N ALBUMIN/GLOBULIN RATIO (test code = ALBUMIN/GLOBULIN RATIO) 1.8 {CALC} 1.0-2.5 N BILIRUBIN, TOTAL; Normal (test code = 92799-4) 0.6 mg/dl 0.2-1.2 N ALKALINE PHSPHATASE (test code = ALKALINE PHSPHATASE) 53 u/l 40-115 N AST; Normal (test code = 1916-6) 17 u/l 10-35 N ALT; Normal (test code = 1742-6) 19 u/l 9-46 N [facility]] CBC (INCLUDES DIFF/PLT)2018-02-10 13:52:00* Test Item Value Reference Range Interpretation Comments WHITE BLOOD CELL COUNT (test code = WHITE BLOOD CELL COUNT) 6.1 {Thousand/u} 3.8-10.8 N RED BLOOD CELL COUNT (test code = RED BLOOD CELL COUNT) 5.13 {Million/uL} 4.20-5.80 N HEMOGLOBIN; Normal (test code = 29938-0) 14.7 g/dl 13.2-17.1 N HEMATOCRIT; Normal (test code = 4544-3) 43.1 % 38.5-50.0 N MCV; Normal (test code = 787-2) 84.0 fL 80.0-100.0 N MCHC; Normal (test code = 54263-6) 34.1 g/dl 32.0-36.0 N RDW; Normal (test code = 788-0) 13.4 % 11.0-15.0 N PLATELET COUNT; Normal (test code = 777-3) 212 {Thousand/u} 140-400 N MPV; Normal (test code = 14328-3) 10.9 fL 7.5-12.5 N ABSOLUTE NEUTROPHILS (test code = ABSOLUTE NEUTROPHILS) 4087 {cells/uL} 2435-8531 N ABSOLUTE LYMPHOCYTES (test code = ABSOLUTE LYMPHOCYTES) 1190 {cells/uL} 850-3900 N ABSOLUTE MONOCYTES (test code = ABSOLUTE MONOCYTES) 525 {cells/uL} 200-950 N ABSOLUTE EOSINOPHILS (test code = ABSOLUTE EOSINOPHILS) 238 {cells/ uL} 15-500 N ABSOLUTE BASOPHILS (test code = ABSOLUTE BASOPHILS) 61 {cells/uL} 0 -200 N NEUTROPHILS (test code = NEUTROPHILS) 67 % N LYMPHOCYTES (test code = LYMPHOCYTES) 19.5 % N MONOCYTES; Normal (test code = 15555-8) 8.6 % N EOSINOPHILS; Normal (test code = 35992-7) 3.9 % N BASOPHILS; Normal (test code = 64541-7) 1.0 % N [facility]] TSH, 3RD [id number] 13:52:00* Test Item Value Reference Range Interpretation Comments TSH; Normal (test code = 72746-7) 1.48 {MIU/L} 0.40-4.50 N [facility]] HEMOGLOBIN [id number] 13:52:00* Test Item Value Reference Range Interpretation Comments HEMOGLOBIN A1c; Above High Threshold (test code = 4548-4) 6.8 {% of total} <5.7 For someone without known diabetes, a he moglobin Q4ulcacv of 6.5% or greater indicates that they may have diabetes and this should be confirmed with a follow-up test. For someone with known diabetes, a value <7% indicates that their diabetes is well controlled and a value greater than or equal to 7% indicates suboptimal control. A1c targets should be individualized based on duration of diabetes, age, comorbid conditions, and other considerations. Currently, no consensus exists regarding use ofhemoglobin A1c for diagnosis of diabetes for children. [facility] [id number] 13:30:00* Test Item Value Reference Range Interpretation Comments Completed (test code = Completed) DONE [facility]] HEMOGLOBIN [id number] 13:49:00* Test Item Value Reference Range Interpretation Comments HEMOGLOBIN A1c; Above High Threshold (test code = 4548-4) 6.5 {% of total} <5.7 For someone without known diabetes, a he moglobin L6wavscq of 6.5% or greater indicates that they may have diabetes and this should be confirmed with a follow-up test. For someone with known diabetes, a value <7% indicates that their diabetes is well controlled and a value greater than or equal to 7% indicates suboptimal control. A1c targets should be individualized based on duration of diabetes, age, comorbid conditions, and other considerations. Currently, no consensus exists regarding use ofhemoglobin A1c for diagnosis of diabetes for children. [facility] (Diabetic)2017-04-05 05:00:00* Test Item Value Reference Range Interpretation Comments Negative Diabetic Eye Screening (test code = Negative Diabetic Eye Screening) [id number] [facility]
--- OUTSIDE RECORDS SUMMARY | 2020-02-05 11:34 | XMS REPORT ---
Author Author ALEXANDREA Schmitt Organization Unknown Address Unknown Phone Care Team Providers Care Motor Room Controller Name Role Phone Lilian Schmitt PP Unavailable Reason for Referral No Reason for Referral was given. History of Present Illness No HPI available. Problems * Vaccines Prophylactic Need Against Influenza (V04.81); (Active) * Bilious Diarrhea (787.91); (Active) * Hyperlipidemia (272.4); (Active) * Hypertension (401.9); (Active) * Type 2 Diabetes Mellitus (250.00); (Active) * Normal Routine History And Physical Senior Citizen (65-80) (V70.0); ( Active) * TMJ Pain (524.62); (Active) Medication * Quinapril HCl 20 MG Oral Tablet; TAKE 1 TABLET DAILY.; Start Date: ; End Date: (Active) * Simvastatin 10 MG Oral Tablet; TAKE 1 TABLET DAILY. (Active) * MetFORMIN HCl 500 MG Oral Tablet; TAKE 2 TABLET TWICE DAILY DIRECTED; Start Date: 05/22/2013; End Date: (Active) * Naproxen 375 MG Oral Tablet; TAKE 1 TABLET EVERY 12 HOURS NEEDED.; Start Date: 09/21/2013; End Date: 09/28/2013 (Active) Allergies and Adverse Reactions * No Known Drug Allergies (Active) Past Medical History * History of Allergic Rhinitis (477.9); (Resolved) * History of Esophageal Reflux (530.81); (Resolved) Procedures Procedure Procedure Date Date Completed Status Back Surgery - - Resolved Rotator Cuff Repair - - Resolved Cholecystectomy - - Resolved Immunization * Fluzone Intramuscular Injectable (Lot #: [id number]) - Administered on: 05/22/2013 Family History * Family history of Denial Of Any Significant Medical History (Active) Social History * Marital History - Currently (Active) * Never Drank Alcohol (Active) * Occupation: Retired (Active) * Never A Smoker (Active) Treatment Plan * [QLH] TSH, 3RD GENERATION W/REFLEX TO FT4 09/21/2013 Routine * [QLH] LIPID PANEL 09/21/2013 Routine * [QLH] HEMOGLOBIN A1c 09/21/2013 Routine * [QLH] CMP W/EGFR 09/21/2013 Routine * [QLH] CBC (INCLUDES DIFF/PLT) 09/21/2013 Routine Advance Directives * No Advance Directives available. Encounters * AUDIT 09/22/2013 * FUP, Provider: LEONARDO GARG, Status: Dharmesh, Time: 1:15 PM 01/22/2014
--- OUTSIDE RECORDS SUMMARY | 2020-02-05 11:34 | XMS REPORT | Summary of Care ---
Author Author ALEXANDREA GOULD Organization Unknown Address Unknown Phone Unavailable Care Team Providers Care Laboratory Tech Name Role Phone LEONARDO GARG M.D. Unavailable Unavailable KEVAN GOULD Unavailable Unavailable FOREST JAMES MI, LEONARDO Holloway Unavailable Unavailable Nathaniel Franco MD Unavailable Unavailable SUNITA JAMES, ALETA Mcknight Unavailable Unavailable ROCHELLE JAMES MI, JANEEN Unavailable Unavailable Unavailable Unavailable Functional Status [...] S03.40XA) Status: Resolved Procedures Procedure Dates Details History of Back Surgery Completed History of Rotator Cuff Repair Completed History of Cholecystectomy Completed History of Rotator Cuff Repair Completed Comments: Completed: Approx [id number] Immunization Name Dates Details Fluzone INJ Lot #: [id number] on: 22-May-2013 Fluzone INJ Lot #: [id number] on: 29-May-2014 Pneumococcal polysaccharide vaccine, 23 valent Lot #: [id number] on: 29-May-2014 Tdap Lot #: [id number] on: 28-Sep-2014 Fluvirin INJ Lot #: [id number] on: 28-May-2015 Fluzone High-Dose 0.5 ML Intramuscular S uspension Prefilled Syringe Lot #: [id number] on: 17-Jun-2016 Prevnar 13 Intramuscular Suspension Lot #: [id number] on: 19-Oct-2016 Fluzone High-Dose 0.5 ML Intramuscular S uspension Prefilled Syringe Lot #: [id number] on: 21-Jun-2017 Fluzone High-Dose 0.5 ML Intramuscular S uspension Prefilled Syringe Lot #: [id number] on: 16-Jun-2018 Shingrix 50 MCG Intramuscular Suspension Reconstituted on: 18-Nov-2018 Shingrix 50 MCG Intramuscular Suspension Reconstituted on: 18-Jan-2019 Fluzone High-Dose 0.5 ML Intramuscular S uspension Prefilled Syringe Lot #: [id number] on: 06-Jun-2019 Family History Name Dates Details [...] pressure 164 mm[Hg] Status: Comments : Location: LUE; Position: Sitting Diastolic blood pressure 84 mm[Hg] Status: Comment s: Location: LUE; Position: Sitting Heart Rate 102 /min Status: Body height 68 in Status: Weight 175 lb Status: Body mass index (BMI) [Ratio] 26.61 kg/m2 Status: Body surface area Derived from formula 1.93 m2 S tatus: Body temperature 97.3 f Status: Comments: Me thod: Temporal Respiratory rate 16 /min Status: Results Date Description Value Details 53-Mfc-65582:26 [O] Urine Dipstick (In Office) Glucose pos (Abnormal) LEUKOCYTES neg (Normal) NITRITE neg (Normal) UROBILINOGEN neg (Normal) PROTEIN neg (Normal) pH 6 (Abnormal) URINE BLOOD neg (Normal) SPECIFIC GRAVITY 1.010 (Abnormal) KETONES neg (Normal) BILIRUBIN neg (Normal) COLOR URINE yellow (Normal) APPEARANCE CLEAR (Normal) :00 [QL] URINALYSIS, COMPLETE COLOR YELLOW (Normal) Range: YELLOW APPEARANCE CLEAR (Normal) Range: CLEAR SPECIFIC GRAVITY 1.014 (Normal) Range: 1.001-1 .035 PH 6.0 (Normal) Range: 5.0-8.0 GLUCOSE 2+ (Abnormal) Range: NEGATIVE BILIRUBIN NEGATIVE (Normal) Range: NEGAT ALEXANDER KETONES NEGATIVE (Normal) Range: NEGAT ALEXANDER OCCULT BLOOD NEGATIVE (Normal) Range: NEGAT ALEXANDER PROTEIN NEGATIVE (Normal) Range: NEGAT ALEXANDER NITRITE NEGATIVE (Normal) Range: NEGAT ALEXANDER LEUKOCYTE ESTERASE NEGATIVE (Normal) Range: NE GATIVE WBC NONE SEEN {/HPF} (Normal) Range : < OR = 5 RBC NONE SEEN {/HPF} (Normal) Range : < OR = 2 SQUAMOUS EPITHELIAL CELLS NONE SEEN {/HPF} (Nor mal) Range: < OR = 5 BACTERIA NONE SEEN {/HPF} (Normal) Range : NONE SEEN HYALINE CAST NONE SEEN {/LPF} (Normal) Range : NONE SEEN :00 [QLH] CULTURE, URINE, ROUTINE CULTURE Comments: CULTJORDAN E, URINE, ROUTINE Micro Number: [id number] Test Status: Final Specimen Source: URINE Specimen Quality: Adequate Result: Multiple organisms present, each less than 10,000 CFU/mL. These organisms, commonly found on external and internal genitalia, are considered to be colonizers. No further testing performed. Plan of Care Name Dates Details Planned Observations Planned Goals not documented Planned Encounters Appointment; LEONARDO GARG M.D. On: 15-Dec-2019 9:30 Interventions Provided Discussion/Summary* Urine testing shows that there is no urinary tract infection. Instructions Name Dates Details Instructions not documented [...]
--- OUTSIDE RECORDS SUMMARY | 2020-02-05 11:34 | XMS REPORT | Summary of Care ---
Author ALEXANDREA Mooney M.A. Organization Unknown Address [facility] Phone Unavailable Care Team Providers Care Boring Machine Operator Horizontal Name Role Phone Bernie Gonzales M.A. Unavailable Unavailable FOREST Storm, LEONARDO Unavailable Unavailable KEVAN GOULD Unavailable Unavailable FOREST JAMES ID, LEONARDO Holloway Unavailable Unavailable Joan JAMES, Nathaniel Unavailable Unavailable SUNITA JAMES, ALETA Mcknight Unavailable Unavailable ROCHELLE JAMES ID, JANEEN Unavailable Unavailable Unavailable Unavailable Functional Status [...] Rotator Cuff Repair Completed Comments: Completed: Approx [id number] Immunization Name Dates Details Fluzone INJ Lot #: [id number] on: 22-May-2013 Fluzone INJ Lot #: [id number] on: 29-May-2014 Pneumococcal polysaccharide vaccine, 23 valent Lot #: [id number] on: 29-May-2014 Tdap Lot #: [id number] on: 28-Sep-2014 Fluvirin INJ Lot #: [id number] on: 28-May-2015 Fluzone High-Dose 0.5 ML Intramuscular S uspension Prefilled Syringe Lot #: [id number] on: 17-Jun-2016 Prevnar 13 Intramuscular Suspension Lot #: [id number] on: 19-Oct-2016 Fluzone High-Dose 0.5 ML Intramuscular S uspension Prefilled Syringe Lot #: [id number] on: 21-Jun-2017 Fluzone High-Dose 0.5 ML Intramuscular S uspension Prefilled Syringe Lot #: [id number] on: 16-Jun-2018 Shingrix 50 MCG Intramuscular Suspension Reconstituted on: 18-Nov-2018 Shingrix 50 MCG Intramuscular Suspension Reconstituted on: 18-Jan-2019 Fluzone High-Dose 0.5 ML Intramuscular S uspension Prefilled Syringe Lot #: [id number] on: 06-Jun-2019 Family History Name Dates Details [...] /min Status: Results Date Description Value Details 04-Fzh-53658:26 [O] Urine Dipstick (In Office) Glucose pos [...] {/LPF} (Normal) Range : NONE SEEN :00 [QL] CULTURE, URINE, ROUTINE CULTURE Comments: CULTUR E, URINE, ROUTINE Micro Number: [id number] Test Status: Final Specimen Source: URINE Specimen Quality: Adequate Result: Multiple organisms present, each less than 10,000 CFU/mL. These organisms, commonly found on external and internal genitalia, are considered to be colonizers. No further testing performed. Plan of Care Name Dates Details Planned Observations Planned Goals not documented Planned Encounters Appointment; LEONARDO GARG M.D. On: 15-Dec-2019 9:30 Instructions Name Dates Details Instructions not documented [...]
--- OUTSIDE RECORDS SUMMARY | 2020-02-05 11:34 | XMS REPORT | Summary of Care ---
Author Author ALEXANDREA GARG M.D. Unknown Address Unknown Phone Unavailable Care Team Providers Care Ice Platform Supervisor Name Role Phone LEONARDO GARG M.D. Unavailable Unavailable FOREST JAMES RI, LEONARDO Holloway Unavailable Unavailable Joan JAMES, Nathaniel Unavailable Unavailable Bekah JAMES, Dustin Unavailable Unavailable ROCHELLE JAMES RI, JANEEN Unavailable Unavailable Unavailable Unavailable Functional Status [...] quadrant pain (789.02, R10.12 ) Status: Active Essential (primary) hypertension (401.9, I10) Status: Active Diabetes mellitus type 2, controlled (25 0.00, E11.9) Status: Active Hyperlipidemia (272.4, E78.5) Status: Active Peripheral vascular disease (443.9, I73. 9) Status: Active Medications Name Dates Details Quinapril [...] GARG M.D. * Start : 31-May-2015 Active Allergies and Adverse Reactions Name Dates [...] S03.40XA) Status: Resolved Procedures Procedure Dates Details US Extremity lower art Dopp bilat [employer] press 10134 Date: History of Back Surgery Completed History of Rotator Cuff Repair Completed History of Cholecystectomy Completed History of Rotator Cuff Repair Completed Comments: Completed: Approx [id number] Immunization Name Dates Details Fluzone INJ Lot #: [id number] on: 22-May-2013 Fluzone INJ Lot #: [id number] on: 29-May-2014 Pneumococcal polysaccharide vaccine, 23 valent Lot #: [id number] on: 29-May-2014 Tdap Lot #: [id number] on: 28-Sep-2014 Fluvirin INJ Lot #: [id number] on: 28-May-2015 Fluzone High-Dose 0.5 ML Intramuscular S uspension Prefilled Syringe Lot #: [id number] on: 17-Jun-2016 Prevnar 13 Intramuscular Suspension Lot #: [id number] on: 19-Oct-2016 Fluzone High-Dose 0.5 ML Intramuscular S uspension Prefilled Syringe Lot #: [id number] on: 21-Jun-2017 Fluzone High-Dose 0.5 ML Intramuscular S uspension Prefilled Syringe Lot #: [id number] on: 16-Jun-2018 Shingrix 50 MCG Intramuscular Suspension Reconstituted on: 18-Nov-2018 Shingrix 50 MCG Intramuscular Suspension Reconstituted on: 18-Jan-2019 Fluzone High-Dose 0.5 ML Intramuscular S uspension Prefilled Syringe Lot #: [id number] on: 06-Jun-2019 Family History Name Dates Details Family history of Denial Of Any Signific ant Medical History Comments: Family History Status: Active Social History Name Dates Details - Status: Name Dates Details Former smoker Vital Signs Date Test Result Details 2-Hsb-086210:39 BP Systolic 113 mm[Hg] Status: Comments: Lo cation: LUE; Position: Sitting BP Diastolic 70 mm[Hg] Status: Comments: Lo cation: LUE; Position: Sitting Height 68 in Status: Weight 177.3 lb Status: Body Mass Index Calculated 26.96 kg/m2 Status: Body Surface Area Calculated 1.94 m2 Status: Temperature 97.8 f Status: Comments: Me thod: Oral Heart Rate 86 /min Status: Respiration Rate 16 /min Status: Results Date Description Value Details 3-Ygn-103932:56 [QLH] HEMOGLOBIN A1c Comments: REPORT C OMMENT:FASTING:NO HEMOGLOBIN A1c 7.8 {%_of_total} (Above high th reshold) Range: <5.7 Comments: For someone without known diabetes, a hemoglobin L0juplef of 6.5% or greater indicates that they [...] A1c for diagnosis of diabetes for children. 56-Pnv-093285:02 US Extremity lower art Dopp bil[place] ress 28746 Extremity lower art Dopp bilat US w press SEE NO NILAY Comments: Please refer to heart lab report, located under Vascular in CARE4.--Electronically Signed by: Bridger Valentin 08/21/1917:29FINAL REPORT Plan of Care Name Dates Details Planned Observations Planned Goals not documented Planned Encounters Appointment; LEONARDO GARG M.D. On: 15-Dec-2019 9:30 Instructions Name Dates Details Instructions not documented Encounters Appointment; LEONARDO GARG M.D. Encounter Diagnosis: Problem not documented On: 19-Oct-2017 13:15 Appointment; VITALY DANIEL NP Encounter Diagnosis: Problem not documented On: 17-Dec-2017 10:00 Appointment; LEONARDO GARG M.D. Encounter Diagnosis: Problem not documented On: 10-Feb-2018 13:30 Appointment; VITALY DANIEL NP Encounter Diagnosis: Problem not documented On: 14-Mar-2018 8:30 Appointment; LEONARDO GARG M.D. Encounter Diagnosis: Problem not documented On: 16-Jun-2018 13:30 Appointment; LEONARDO GARG M.D. Encounter Diagnosis: Problem not documented On: 16-Jun-2018 13:30 Appointment; LEONRADO GARG M.D. Encounter Diagnosis: Problem not documented On: 11-Oct-2018 10:30 Appointment; LEONARDO GARG M.D. Encounter Diagnosis: Problem not documented On: 12-Jan-2019 13:30 Appointment; LEONARDO GARG M.D. Encounter Diagnosis: Problem not documented On: 14-Apr-2019 11:00 Appointment; JANEEN BYRD M.D. Encounter Diagnosis: Problem not documented On: 27-Apr-2019 8:15 Appointment; DUSTIN DORSEY M.D. Encounter Diagnosis: Problem not documented On: 16-May-2019 14:00 Appointment; VITALY DANIEL NP Encounter Diagnosis: Problem not documented On: 06-Jun-2019 8:30 Appointment; VITALY DANIEL NP Encounter Diagnosis: Problem not documented On: 16-Jun-2019 10:15 Appointment; LEONARDO GARG M.D. Encounter Diagnosis: Problem not documented On: 14-Aug-2019 11:00
--- OUTSIDE RECORDS SUMMARY | 2020-02-05 11:34 | XMS REPORT ---
Author Author ALEXANDREA Schmitt Organization Unknown Address Unknown Phone Care Team Providers Care Oil Well Shooter Name Role Phone Lilian Schmitt PP Unavailable Reason for Referral No Reason for Referral was given. History of Present Illness No HPI available. Problems * Vaccines Prophylactic Need Against Influenza (V04.81); (Active) * Type 2 Diabetes Mellitus (250.00); (Active) * Hypertension (401.9); (Active) * Hyperlipidemia (272.4); (Active) * Normal Routine History And Physical Senior Citizen (65-80) (V70.0); ( Active) Medication * Quinapril HCl 20 MG Oral Tablet; TAKE 1 TABLET DAILY. (Active) * Simvastatin 10 MG Oral Tablet; TAKE 1 TABLET DAILY. (Active) * MetFORMIN HCl 500 MG Oral Tablet; TAKE 2 TABLET TWICE DAILY DIRECTED; Start Date: 05/22/2013 (Active) Allergies and Adverse Reactions * No Known Drug Allergies (Active) Past Medical History * History of Allergic Rhinitis (477.9); (Resolved) * History of Esophageal Reflux (530.81); (Resolved) Procedures Procedure Procedure Date Date Completed Status Back Surgery - - Resolved Rotator Cuff Repair - - Resolved Cholecystectomy - - Resolved Immunization * Fluzone Intramuscular Injectable (Lot #: [id number]) - Administered on: 05/22/2013 Family History * Family history of Denial Of Any Significant Medical History (Active) Social History * Marital History - Currently (Active) * Never Drank Alcohol (Active) * Occupation: Retired (Active) * Never A Smoker (Active) Advance Directives * No Advance Directives available. Encounters * AUDIT 05/22/2013 * ANN, Provider: LEONARDO GARG, Status: Dharmesh, Time: 12:45 PM 09/21/2013
--- OUTSIDE RECORDS SUMMARY | 2020-02-05 11:34 | XMS REPORT | Clinical Summary ---
Author Author [employer] [facility] Organization [employer] Address Unknown Phone Unavailable Care Team Providers Care Family Practice Physician Assistant Name Role Phone Jose Huggins MD PCP Allergies No Known Allergies Medications End Date Status Medication Sig Dispensed Refills Start Date Active metFORMIN (GLUCOPHAGE) 0 500 MG tablet 6 Active Problems Not on file Social History Date Tobacco Use Types Packs/Day Years Used Never Smoker Drinks/Week oz/Week Comments Alcohol Use 4 drinks per week Yes Sex Assigned at Date Recorded Not on file Industry Job Start Date Occupation Not on file Not on file Not on file Travel End Travel History Travel Start No recent travel history available. Last Filed Vital Signs Not on file Plan of Treatment Health Maintenance Due Date Last Done Comments SHINGLES VACCINES (#1) 1990 65+ PNEUMOCOCCAL VACCINE 2005 (1 of 2 - PCV13) INFLUENZA VACCINE 04/06/2020 Results Not on fileafter 02/04/2019 Insurance Type Payer Benefit Subscriber ID Effective Phone Address Plan / Dates Group HMO [employer] TEX[employer] xxxxxxxxx 2016-P RICKY hairston Advance Directives For more information, please contact: [phone] Patient Treasury Associate Explanation Type Date Recorded Advance Directives, Living Will and Medical Power of Factory Clerk
--- OUTSIDE RECORDS SUMMARY | 2020-02-05 11:34 | XMS REPORT | Continuity of Care Document ---
Author Author EnlytonALEXANDREA Enlyton Address Unknown Phone Unavailable Care Team Providers Care Care Worker Name Role Phone Cuciniale Information Jimdo Unavailable Un available Problems Problem Status Onset Date Classification Date Reported Comments Source Vaccines Prophylactic Need Against Influenza Active 10/04/2013 [facility] Type 2 Diabetes Mellitus Active 10/04/2013 [facility] Hypertension Active 10/04/2013 [facility] Hyperlipidemia Active 10/04/2013 [facility] Bilious Diarrhea Active 10/04/2013 [facility] TMJ Pain Active 10/04/2013 [facility] Medications Medication Details Route Status Patient Instructions Ordering Provider Order Date Source Naproxen 375 MG Oral Tablet ; Start Date: 09/21/2013; End Date: 09/28/2013 (Active) Active 09/21/2013 [facility] MetFORMIN HCl 500 MG Oral Tablet ; Start Date: 05/22/2013; End Date: (Active) Active 05/22/2013 [facility] Quinapril HCl 20 MG Oral Tablet ; Start Date: ; End Date: (Active) Inactive [facility] Simvastatin 10 MG Oral Tablet ; Start Date: ; End Date: (Active) Inactive [facility] Quinapril HCl 20 MG Oral Tablet (Active) Active [facility] Simvastatin 10 MG Oral Tablet (Active) Active [facility] Allergies, Adverse Reactions, Alerts Substance Category Reaction Severity Reaction type Status Date Reported Comments Source No Known Drug Allergies drug a llergy drug aller gy Active [facility] Immunizations Immunization Date Given Site Status Last Updated Comments Source Fluzone Intramuscular Injectable 05/22/2013 completed [facility] Results No Data Provided for This Section Pathology Reports No Data Provided for This Section Diagnostic Reports No Data Provided for This Section Consultation Notes No Data Provided for This Section Discharge Summaries No Data Provided for This Section History and Physicals No Data Provided for This Section Vital Signs No Data Provided for This Section Encounters Location Location Details Encounter Type Encounter Number Reason For Visit Attending Provider ADM Date DC Date Status Source AUDIT [id number] 05/22/2013 05/22/2013 [facility] ANN, Provi nabil: LEONARDO GARG, Status: Pen, Time: 12:45 PM [id number] 09/21/19 14 05/22/2013 [facility] AUDIT [id number] 09/21/2013 09/21/2013 [facility] AUDIT [id number] 09/22/2013 09/22/2013 [facility] AUDIT [id number] 09/25/2013 09/25/2013 [facility] AUDIT [id number] 10/04/2013 10/04/2013 [facility] ANN, Provi nabil: LEONARDO GARG, Status: Pen, Time: 1:15 PM [id number] 01/23/20 14 10/04/2013 [facility] Procedures No Data Provided for This Section Assessment and Plan No Data Provided for This Section Plan of Care Plan of Care Date Source [QLH] TSH, 3RD GENERATION W/REFLEX TO FT 4 09/21/2013 Routine[QLH] LIPID PANEL 09/21/2013 Routine[QLH] HEMOGLOBIN A1c 09/21/2013 Routine[QLH] CMP W/EGFR 09/21/2013 Routine[QLH] CBC (INCLUDES DIFF/PLT) 09/21/2013 Routine 09/22/2013 [facility] [QLH] TSH, 3RD GENERATION W/REFLEX TO FT 4 09/21/2013 Routine[QLH] LIPID PANEL 09/21/2013 Routine[QLH] HEMOGLOBIN A1c 09/21/2013 Routine[QLH] CMP W/EGFR 09/21/2013 Routine[QLH] CBC (INCLUDES DIFF/PLT) 09/21/2013 RoutineGastroenterology Referral 09/21/2013 Routine 09/21/2013 [facility] Social History Social History Date Source Marital History - Currently (Active) Never Drank Alcohol (Active) Occupation: Retired (Active) Never A Smoker (Active) 10/04/2013 [facility] Family History Value Date S ource Family history of Denial Of Any Signific ant Medical History (Active) 10/04/2013 [facility] Family history of Denial Of Any Signific ant Medical History (Active) 09/25/2013 [facility] Family history of Denial Of Any Signific ant Medical History (Active) 09/22/2013 [facility] Family history of Denial Of Any Signific ant Medical History (Active) 09/21/2013 [facility] Family history of Denial Of Any Signific ant Medical History (Active) 05/22/2013 [facility] Advance Directives Order Name Results Value Date Source Advance Directives Advance Dir ectives No Advance Directives available. 10/04/2013 [facility] Advance Directives Advance Dir ectives No Advance Directives available. 09/25/2013 [facility] Advance Directives Advance Dir ectives No Advance Directives available. 09/22/2013 [facility] Advance Directives Advance Dir ectives No Advance Directives available. 09/21/2013 [facility] Advance Directives Advance Dir ectives No Advance Directives available. 05/22/2013 [facility] Functional Status No Data Provided for This Section
--- OUTSIDE RECORDS SUMMARY | 2020-02-05 11:34 | XMS REPORT ---
Author Author ALEXANDREA Schmitt Organization Unknown Address Unknown Phone Care Team Providers Care Box Fabricator Name Role Phone Lilian Schmitt PP Unavailable [...] 10 MG Oral Tablet; TAKE 1 TABLET DAILY.; Start Date: ; End Date: (Active) * MetFORMIN HCl 500 MG Oral [...] Immunization * Fluzone Intramuscular Injectable (Lot #: [id number]) - Administered on: 05/22/2013 Family History * Family history of Denial Of Any Significant Medical History (Active) Social History * Marital History - Currently (Active) * Never Drank Alcohol (Active) * Occupation: Retired (Active) * Never A Smoker (Active) Advance Directives * No Advance Directives available. Encounters * AUDIT 09/25/2013 * [facility], Provider: LEONARDO GARG, Status: Dharmesh, Time: 1:15 PM 01/22/2014
--- OUTSIDE RECORDS SUMMARY | 2020-02-05 11:34 | XMS REPORT ---
Author Author ALEXANDREA GARG LEONARDO Organization Unknown Address Unknown Phone Care Team Providers Care Desulphuring Operator Name Role Phone LEONARDO GARG PP Unavailable Reason for Referral No Reason [...] DIRECTED; Start Date: 05/22/2013; End Date: (Active) Allergies and Adverse Reactions * No Known Drug Allergies (Active) Past Medical History * History of Allergic Rhinitis (477.9); (Resolved) * History of Esophageal Reflux (530.81); (Resolved) Procedures Procedure Procedure Date Date Completed Status Back Surgery - - Resolved Rotator Cuff Repair - - Resolved Cholecystectomy - - Resolved Immunization * Fluzone Intramuscular Injectable (Lot #: [id number]) - Administered on: 05/22/2013 Family History * Family history of Denial Of Any Significant Medical History (Active) Social History * Marital History - Currently (Active) * Never Drank Alcohol (Active) * Occupation: Retired (Active) * Never A Smoker (Active) Advance Directives * No Advance Directives available. Encounters * AUDIT 10/04/2013 * [facility], Provider: LEONARDO GARG, Status: Pen, Time: 1:15 PM 01/22/2014
--- OUTSIDE RECORDS SUMMARY | 2020-02-05 11:35 | XMS REPORT | Summary of Care ---
Author Author Keshia LORD ALEXANDREA [facility] Unknown Address Unknown Phone Unavailable Care Team Providers Care Property Claims Adjuster Name Role Phone FOREST Storm, LEONARDO Unavailable Unavailable JULEE P.AKEVAN Tejada Unavailable Unavailable FOREST JAMES [place], LEONARDO Holloway Unavailable Unavailable Nathaniel Franco MD Unavailable Unavailable SUNITA JAMES, ALETA Mcknight Unavailable Unavailable ROCHELLE JAMES [place], JANEEN Unavailable Unavailable Unavailable Unavailable Functional Status [...] Active BMI 27.0-27.9,adult (V85.23, Z68.27) Status: Active Diabetes mellitus type 2, controlled (25 0.00, E11.9) Status: Active Hyperlipidemia (272.4, E78.5) Status: Active Peripheral vascular disease (443.9, I73. 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 * Start : 04-Dec-2014 Active Simvastatin 20 MG Oral Tablet TAKE 1 TABLET BY MOUTH AT BEDTIME * Quantity: 90 Refills: 0 LEONARDO GARG M.D. * Start : 06-Apr-2014 [...] Rotator Cuff Repair Completed Comments: Completed: Approx [id number] Immunization Name Dates Details Fluzone INJ Lot #: [id number] on: 22-May-2013 Fluzone INJ Lot #: [id number] on: 29-May-2014 Pneumococcal polysaccharide vaccine, 23 valent Lot #: [id number] on: 29-May-2014 Tdap Lot #: [id number] on: 28-Sep-2014 Fluvirin INJ Lot #: [id number] on: 28-May-2015 Fluzone High-Dose 0.5 ML Intramuscular S uspension Prefilled Syringe Lot #: [id number] on: 17-Jun-2016 Prevnar 13 Intramuscular Suspension Lot #: [id number] on: 19-Oct-2016 Fluzone High-Dose 0.5 ML Intramuscular S uspension Prefilled Syringe Lot #: [id number] on: 21-Jun-2017 Fluzone High-Dose 0.5 ML Intramuscular S uspension Prefilled Syringe Lot #: [id number] on: 16-Jun-2018 Shingrix 50 MCG Intramuscular Suspension Reconstituted on: 18-Nov-2018 Shingrix 50 MCG Intramuscular Suspension Reconstituted on: 18-Jan-2019 Fluzone High-Dose 0.5 ML Intramuscular S uspension Prefilled Syringe Lot #: [id number] on: 06-Jun-2019 Family History Name Dates Details Family history of Denial Of Any Signific ant Medical History Comments: Family History Status: Active Social History Name Dates Details - Status: Name Dates Details Ex-smoker (finding) Vital Signs Date Test Result Details No Known Vitals to report Results Date Description Value Details Results not documented Plan of Care Name Dates Details Planned Observations Planned Goals not documented Planned Encounters Appointment; LEONARDO GARG M.D. On: 15-Dec-2019 9:30 Interventions Provided Medication Changes* Simvastatin 20 MG Oral Tablet - Renew Instructions Name [...]
--- OUTSIDE RECORDS SUMMARY | 2020-02-05 11:35 | XMS REPORT | Summary of Care ---
Author ALEXANDREA Acosta M.A. Organization Unknown Address [facility] Phone Unavailable Care Team Providers Care Beauty Counselor Name Role Phone FOREST Storm, LEONARDO Mast Unavailable Milagro Franco M.A. Unavailable Unavailable KEVAN GOULD Unavailable Unavailable FOREST JAMES [place], LEONARDO Holloway Unavailable Unavailable Nathaniel Franco MD Unavailable Unavailable SUNITA JAMES, ALETA Mcknight Unavailable Unavailable ROCHELLE JAMES [place], JANEEN Unavailable Unavailable Unavailable Unavailable Functional Status [...] discussed with patient (V65.49, Z71.89) Status: Active Hip osteoarthritis (715.95, M16.9) Status: Active Seasonal allergic rhinitis (477.9, J30.2 ) Status: Active Left ear pain (388.70, H92.02) Status: Active Left otitis media (382.9, H66.92) Status: Active Vitiligo (709.01, L80) Status: Active BMI 27.0-27.9,adult (V85.23, Z68.27) Status: Active Diabetes mellitus type 2, controlled (25 0.00, E11.9) Status: Active Peripheral vascular disease (443.9, I73. 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 * Start : 04-Dec-2014 Active Simvastatin 20 MG Oral Tablet TAKE 1 TABLET BY MOUTH AT BEDTIME * Quantity: 90 Refills: 0 LEONARDO GAGR M.D. * Start : 06-Apr-2014 Active metFORMIN [...] Rotator Cuff Repair Completed Comments: Completed: Approx [id number] Immunization Name Dates Details Fluzone INJ Lot #: [id number] on: 22-May-2013 Fluzone INJ Lot #: [id number] on: 29-May-2014 Pneumococcal polysaccharide vaccine, 23 valent Lot #: [id number] on: 29-May-2014 Tdap Lot #: [id number] on: 28-Sep-2014 Fluvirin INJ Lot #: [id number] on: 28-May-2015 Fluzone High-Dose 0.5 ML Intramuscular S uspension Prefilled Syringe Lot #: [id number] on: 17-Jun-2016 Prevnar 13 Intramuscular Suspension Lot #: [id number] on: 19-Oct-2016 Fluzone High-Dose 0.5 ML Intramuscular S uspension Prefilled Syringe Lot #: [id number] on: 21-Jun-2017 Fluzone High-Dose 0.5 ML Intramuscular S uspension Prefilled Syringe Lot #: [id number] on: 16-Jun-2018 Shingrix 50 MCG Intramuscular Suspension Reconstituted on: 18-Nov-2018 Shingrix 50 MCG Intramuscular Suspension Reconstituted on: 18-Jan-2019 Fluzone High-Dose 0.5 ML Intramuscular S uspension Prefilled Syringe Lot #: [id number] on: 06-Jun-2019 Family History Name Dates Details [...] Observations Planned Goals not documented Planned Encounters Follow-up visit in 3 months Instructions Name Dates Details Instructions not documented [...] Diagnosis: Problem not documented On: 30-Oct-2019 9:00 Appointment; LEONARDO GARG M.D. Encounter Diagnosis: Problem not documented On: 15-Dec-2019 9:30
--- OUTSIDE RECORDS SUMMARY | 2020-02-05 11:35 | XMS REPORT | Summary of Care ---
Author Author ALEXANDREA Matamoros LVN [facility] Unknown Address [facility] Phone Unavailable Care Team Providers Care Small Arms Repairer Name Role Phone FOREST Storm, LEONARDO Unavailable Unavailable JULEE P.A.KEVAN Unavailable Unavailable FOREST JAMES [place], LEONARDO Holloway [...] TAKE 1/2 (ONE-HALF) TABLET BY MOUTH ONCE DAILY. Quantity: 15 LEONARDO GARG M.D. * Start : 04-Dec-2014 [...] Rotator Cuff Repair Completed Comments: Completed: Approx [id number] Immunization Name Dates Details Fluzone INJ Lot #: [id number] on: 22-May-2013 Fluzone INJ Lot #: [id number] on: 29-May-2014 Pneumococcal polysaccharide vaccine, 23 valent Lot #: [id number] on: 29-May-2014 Tdap Lot #: [id number] on: 28-Sep-2014 Fluvirin INJ Lot #: [id number] on: 28-May-2015 Fluzone High-Dose 0.5 ML Intramuscular S uspension Prefilled Syringe Lot #: [id number] on: 17-Jun-2016 Prevnar 13 Intramuscular Suspension Lot #: [id number] on: 19-Oct-2016 Fluzone High-Dose 0.5 ML Intramuscular S uspension Prefilled Syringe Lot #: [id number] on: 21-Jun-2017 Fluzone High-Dose 0.5 ML Intramuscular S uspension Prefilled Syringe Lot #: [id number] on: 16-Jun-2018 Shingrix 50 MCG Intramuscular Suspension Reconstituted on: 18-Nov-2018 Shingrix 50 MCG Intramuscular Suspension Reconstituted on: 18-Jan-2019 Fluzone High-Dose 0.5 ML Intramuscular S uspension Prefilled Syringe Lot #: [id number] on: 06-Jun-2019 Family History Name Dates Details [...] Details Planned Observations Planned Goals not documented Interventions Provided Medication Changes* Quinapril HCl - 20 MG Oral Tablet - Renew Instructions [...]
--- OUTSIDE RECORDS SUMMARY | 2020-02-05 11:35 | XMS REPORT | Summary of Care ---
Author Author ALEXANDREA Franco M.A. Organization Unknown Address [facility] Phone Unavailable Care Team Providers Care Leather Novelty Parts Cutter Name Role Phone FOREST Storm, LEONARDO Unavailable Unavailable KEVAN GOULD Unavailable Unavailable FOREST JAMES [place], LEONARDO Holloway Unavailable Unavailable Nathaniel Franco MD Unavailable Unavailable SUNITA JAMES, ALETA Mcknight Unavailable Unavailable ROCHELLE JAMES [place], JANEEN Unavailable Unavailable Unavailable Unavailable Functional Status [...] Rotator Cuff Repair Completed Comments: Completed: Approx [id number] Immunization Name Dates Details Fluzone INJ Lot #: [id number] on: 22-May-2013 Fluzone INJ Lot #: [id number] on: 29-May-2014 Pneumococcal polysaccharide vaccine, 23 valent Lot #: [id number] on: 29-May-2014 Tdap Lot #: [id number] on: 28-Sep-2014 Fluvirin INJ Lot #: [id number] on: 28-May-2015 Fluzone High-Dose 0.5 ML Intramuscular S uspension Prefilled Syringe Lot #: [id number] on: 17-Jun-2016 Prevnar 13 Intramuscular Suspension Lot #: [id number] on: 19-Oct-2016 Fluzone High-Dose 0.5 ML Intramuscular S uspension Prefilled Syringe Lot #: [id number] on: 21-Jun-2017 Fluzone High-Dose 0.5 ML Intramuscular S uspension Prefilled Syringe Lot #: [id number] on: 16-Jun-2018 Shingrix 50 MCG Intramuscular Suspension Reconstituted on: 18-Nov-2018 Shingrix 50 MCG Intramuscular Suspension Reconstituted on: 18-Jan-2019 Fluzone High-Dose 0.5 ML Intramuscular S uspension Prefilled Syringe Lot #: [id number] on: 06-Jun-2019 Family History Name Dates Details [...] Planned Encounters Follow-up visit in 3 months Interventions Provided Plan* Continue current medications. RTC in three months. Instructions Name Dates Details Instructions not documented [...]
--- OUTSIDE RECORDS SUMMARY | 2020-02-05 11:35 | XMS REPORT | Summary of Care ---
Author Author AELXANDREA GARG M.D. Unknown Address Unknown Phone Unavailable Care Team Providers Care Grocery Cashier Name Role Phone LEONARDO GARG M.D. Unavailable Unavailable JULEE P.A., KEVAN Unavailable Unavailable FOREST JAMES [place], LEONARDO Holloway Unavailable Unavailable Nathaniel Franco MD Unavailable Unavailable SUNITA JAMES, ALETA Mcknight Unavailable Unavailable ROCHELLE JAMES [place], JANEEN Unavailable Unavailable Unavailable Unavailable Functional Status [...] AT BEDTIME * Quantity: 90 Refills: 0 FOREST Storm, LEONARDO * Start : 06-Apr-2014 Active metFORMIN HCl [...] Rotator Cuff Repair Completed Comments: Completed: Approx [id number] Immunization Name Dates Details Fluzone INJ Lot #: [id number] on: 22-May-2013 Fluzone INJ Lot #: [id number] on: 29-May-2014 Pneumococcal polysaccharide vaccine, 23 valent Lot #: [id number] on: 29-May-2014 Tdap Lot #: [id number] on: 28-Sep-2014 Fluvirin INJ Lot #: [id number] on: 28-May-2015 Fluzone High-Dose 0.5 ML Intramuscular S uspension Prefilled Syringe Lot #: [id number] on: 17-Jun-2016 Prevnar 13 Intramuscular Suspension Lot #: [id number] on: 19-Oct-2016 Fluzone High-Dose 0.5 ML Intramuscular S uspension Prefilled Syringe Lot #: [id number] on: 21-Jun-2017 Fluzone High-Dose 0.5 ML Intramuscular S uspension Prefilled Syringe Lot #: [id number] on: 16-Jun-2018 Shingrix 50 MCG Intramuscular Suspension Reconstituted on: 18-Nov-2018 Shingrix 50 MCG Intramuscular Suspension Reconstituted on: 18-Jan-2019 Fluzone High-Dose 0.5 ML Intramuscular S uspension Prefilled Syringe Lot #: [id number] on: 06-Jun-2019 Family History Name Dates Details [...] months Interventions Provided Plan* Continue current medications. Improve diet and exercise. RTC in three months. Instructions Name Dates [...]
--- OUTSIDE RECORDS SUMMARY | 2020-02-05 11:35 | XMS REPORT | Summary of Care ---
Author Author ALEXANDREA Craven Organization Unknown Address [facility] Phone Unavailable Care Team Providers Care Perinatal Tech Name Role Phone FOREST Storm, LEONARDO Unavailable Unavailable Cristal Craven Unavailable Unavailable JULEE P.AKEVAN Tejada Unavailable Unavailable FOREST JAMES [place], LEONARDO Holloway Unavailable Unavailable Nathaniel Franco MD Unavailable Unavailable SUNITA JAMES, ALETA Mcknight Unavailable Unavailable ROCHELLE JAMES [place], JANEEN Unavailable Unavailable Unavailable Unavailable Functional Status [...] Rotator Cuff Repair Completed Comments: Completed: Approx [id number] Immunization Name Dates Details Fluzone INJ Lot #: [id number] on: 22-May-2013 Fluzone INJ Lot #: [id number] on: 29-May-2014 Pneumococcal polysaccharide vaccine, 23 valent Lot #: [id number] on: 29-May-2014 Tdap Lot #: [id number] on: 28-Sep-2014 Fluvirin INJ Lot #: [id number] on: 28-May-2015 Fluzone High-Dose 0.5 ML Intramuscular S uspension Prefilled Syringe Lot #: [id number] on: 17-Jun-2016 Prevnar 13 Intramuscular Suspension Lot #: [id number] on: 19-Oct-2016 Fluzone High-Dose 0.5 ML Intramuscular S uspension Prefilled Syringe Lot #: [id number] on: 21-Jun-2017 Fluzone High-Dose 0.5 ML Intramuscular S uspension Prefilled Syringe Lot #: [id number] on: 16-Jun-2018 Shingrix 50 MCG Intramuscular Suspension Reconstituted on: 18-Nov-2018 Shingrix 50 MCG Intramuscular Suspension Reconstituted on: 18-Jan-2019 Fluzone High-Dose 0.5 ML Intramuscular S uspension Prefilled Syringe Lot #: [id number] on: 06-Jun-2019 Family History Name Dates Details [...] Details Planned Observations Planned Goals not documented Instructions Name Dates Details Instructions not documented [...]
--- OUTSIDE RECORDS SUMMARY | 2020-02-05 11:35 | XMS REPORT | Summary of Care ---
Author Author ALEXANDREA GARG M.D. Unknown Address Unknown Phone Unavailable Care Team Providers Care Estimating Engineer Name Role Phone LEONARDO GARG M.D. Unavailable Unavailable JULEE P.A., KEVAN Unavailable Unavailable FOREST JAMES [place], LEONARDO Holloway Unavailable Unavailable Nathaniel Franco MD Unavailable Unavailable SUNITA JAMES, ALETA Mcknight Unavailable Unavailable ROCHELLE JAMES [place], JANEEN Unavailable Unavailable Unavailable Unavailable Functional Status [...] Rotator Cuff Repair Completed Comments: Completed: Approx [id number] Immunization Name Dates Details Fluzone INJ Lot #: [id number] on: 22-May-2013 Fluzone INJ Lot #: [id number] on: 29-May-2014 Pneumococcal polysaccharide vaccine, 23 valent Lot #: [id number] on: 29-May-2014 Tdap Lot #: [id number] on: 28-Sep-2014 Fluvirin INJ Lot #: [id number] on: 28-May-2015 Fluzone High-Dose 0.5 ML Intramuscular S uspension Prefilled Syringe Lot #: [id number] on: 17-Jun-2016 Prevnar 13 Intramuscular Suspension Lot #: [id number] on: 19-Oct-2016 Fluzone High-Dose 0.5 ML Intramuscular S uspension Prefilled Syringe Lot #: [id number] on: 21-Jun-2017 Fluzone High-Dose 0.5 ML Intramuscular S uspension Prefilled Syringe Lot #: [id number] on: 16-Jun-2018 Shingrix 50 MCG Intramuscular Suspension Reconstituted on: 18-Nov-2018 Shingrix 50 MCG Intramuscular Suspension Reconstituted on: 18-Jan-2019 Fluzone High-Dose 0.5 ML Intramuscular S uspension Prefilled Syringe Lot #: [id number] on: 06-Jun-2019 Family History Name Dates Details [...]
--- OUTSIDE RECORDS SUMMARY | 2020-02-05 11:35 | XMS REPORT | Summary of Care ---
Author Author ALEXANDREA Cantor [facility] Organization Unknown Address Unknown Phone Unavailable Care Team Providers Care Signal Worker Name Role Phone FOREST Storm, LEONARDO Unavailable Unavailable KEVAN GOULD Unavailable Unavailable FOREST JAMES [place], LEONARDO Holloway Unavailable Unavailable Nathaniel Franco MD Unavailable Unavailable SUNITA JAMES, ALETA Mcknight Unavailable Unavailable ROCHELLE JAMES [place], JANEEN Unavailable Unavailable Unavailable Unavailable Functional Status [...] Rotator Cuff Repair Completed Comments: Completed: Approx [id number] Immunization Name Dates Details Fluzone INJ Lot #: [id number] on: 22-May-2013 Fluzone INJ Lot #: [id number] on: 29-May-2014 Pneumococcal polysaccharide vaccine, 23 valent Lot #: [id number] on: 29-May-2014 Tdap Lot #: [id number] on: 28-Sep-2014 Fluvirin INJ Lot #: [id number] on: 28-May-2015 Fluzone High-Dose 0.5 ML Intramuscular S uspension Prefilled Syringe Lot #: [id number] on: 17-Jun-2016 Prevnar 13 Intramuscular Suspension Lot #: [id number] on: 19-Oct-2016 Fluzone High-Dose 0.5 ML Intramuscular S uspension Prefilled Syringe Lot #: [id number] on: 21-Jun-2017 Fluzone High-Dose 0.5 ML Intramuscular S uspension Prefilled Syringe Lot #: [id number] on: 16-Jun-2018 Shingrix 50 MCG Intramuscular Suspension Reconstituted on: 18-Nov-2018 Shingrix 50 MCG Intramuscular Suspension Reconstituted on: 18-Jan-2019 Fluzone High-Dose 0.5 ML Intramuscular S uspension Prefilled Syringe Lot #: [id number] on: 06-Jun-2019 Family History Name Dates Details [...]
--- OUTSIDE RECORDS SUMMARY | 2020-02-05 11:35 | XMS REPORT | Summary of Care ---
Author Author ALEXANDREA Matamoros LV[facility] Unknown Address [facility] Phone Unavailable Care Team Providers Care Cook Morning Name Role Phone FOREST Storm, LEONARDO Unavailable Unavailable JULEE P.A.KEVAN Unavailable Unavailable FOREST JAMES MT, LEONARDO Holloway Unavailable Unavailable Nathaniel Franco MD Unavailable Unavailable SUNITA JAMES, ALETA Mcknight Unavailable Unavailable ROCHELLE JAMES MT, JANEEN Unavailable Unavailable Unavailable Unavailable Functional Status [...] Rotator Cuff Repair Completed Comments: Completed: Approx [id number] Immunization Name Dates Details Fluzone INJ Lot #: [id number] on: 22-May-2013 Fluzone INJ Lot #: [id number] on: 29-May-2014 Pneumococcal polysaccharide vaccine, 23 valent Lot #: [id number] on: 29-May-2014 Tdap Lot #: [id number] on: 28-Sep-2014 Fluvirin INJ Lot #: [id number] on: 28-May-2015 Fluzone High-Dose 0.5 ML Intramuscular S uspension Prefilled Syringe Lot #: [id number] on: 17-Jun-2016 Prevnar 13 Intramuscular Suspension Lot #: [id number] on: 19-Oct-2016 Fluzone High-Dose 0.5 ML Intramuscular S uspension Prefilled Syringe Lot #: [id number] on: 21-Jun-2017 Fluzone High-Dose 0.5 ML Intramuscular S uspension Prefilled Syringe Lot #: [id number] on: 16-Jun-2018 Shingrix 50 MCG Intramuscular Suspension Reconstituted on: 18-Nov-2018 Shingrix 50 MCG Intramuscular Suspension Reconstituted on: 18-Jan-2019 Fluzone High-Dose 0.5 ML Intramuscular S uspension Prefilled Syringe Lot #: [id number] on: 06-Jun-2019 Family History Name Dates Details [...] Goals not documented Interventions Provided Medication Changes* metFORMIN HCl - [...]
[2020-02-05 12:37] LABS: BASOPHILS # (AUTO) 0.1 (0.0-0.1); BASOPHILS % 0.8 % (0.0-1.0); EOSINOPHILS # (AUTO) 0.1 (0.0-0.4); EOSINOPHILS % 1.7 % (0.0-6.0); HEMATOCRIT 42.8 % (38.2-49.6); HEMOGLOBIN 13.8 g/dL (14.0-18.0); LYMPHOCYTES # (AUTO) 1.1 (1.0-3.2); LYMPHOCYTES % 14.2 % (18.0-39.1); MEAN CORPUSCULAR HEMOGLOBIN 27.9 pg (28-32); MEAN CORPUSCULAR HGB CONC 32.2 g/dL (31-35); MEAN CORPUSCULAR VOLUME 86.6 fL (81-99); MONOCYTES # (AUTO) 0.5 (0.2-0.8); MONOCYTES % 7.2 % (4.4-11.3); NEUTROPHILS # (AUTO) 5.7 (2.1-6.9); NEUTROPHILS % 75.7 % (38.7-80.0); PLATELET COUNT 202 x10e3/uL (140-360); RED BLOOD COUNT 4.94 x10e6/uL (4.3-5.7); RED CELL DISTRIBUTION WIDTH 14.2 % (11.7-14.4)
[2020-02-05 13:05] LABS: ALANINE AMINOTRANSFERASE 17 IU/L (0-55); ALBUMIN 4.1 g/dL (3.5-5.0); ALBUMIN/GLOBULIN RATIO 1.3 (0.8-2.0); ALKALINE PHOSPHATASE 58 IU/L (40-150); ANION GAP 12.6 mmol/L (8-16); BLOOD UREA NITROGEN 17 mg/dL (7-26); BUN/CREATININE RATIO 15 (6-25); CALCIUM 9.6 mg/dL (8.4-10.2); CARBON DIOXIDE 26 mmol/L (22-29); CHLORIDE 105 mmol/L (98-107); CREATINE KINASE 42 IU/L (30-200); EST GLOMERULAR FILTRATION RATE > 60 ML/MIN (60-); GLUCOSE 275 mg/dL (74-118); POTASSIUM 4.6 mmol/L (3.5-5.1); SODIUM 139 mmol/L (136-145)
--- NOTE | 2020-02-05 13:35 | Diagnostic Imaging Report ---
EXAM: CHEST SINGLE (PORTABLE) DATE: 02/05/2020 1:08 PM INDICATION: Chest pain COMPARISON: None FINDINGS: The trachea is midline. The lungs are symmetrically expanded without evidence for large focal consolidation, pneumothorax, or significant pleural effusion. The cardiomediastinal silhouette and pulmonary vasculature are within normal limits. No acute osseous abnormality is identified. The surrounding soft tissues are unremarkable. IMPRESSION: No acute cardiopulmonary process identified. Signed by: Dr. Ion Aguilar MD on 02/05/2020 1:32 PM
--- NOTE | 2020-02-05 14:39 | Emergency Department Note ---
History of Present Illnes History of Present Illness Chief Complaint: Chest Pain History of Present Illness This is a 79 year old male . Chief Complaint Comment PATIENT IN FROM HOME WITH COMPLAINTS OF CHEST PAIN X 3 DAYS RATED 6/10. PATIENT APPEARS IN NO DISTRESS, RESP EVEN AND NONLABORED, AMBULATORY WITHOUT ASSISTANCE. PATIENT DENIES SHORTNESS OF BREATH OR NAUSEA Historian: Patient Arrival Mode: Car Past Medical/Family History Physician Review I have reviewed the patient's past medical and family history. Any updates have been documented here. Past Medical History Recent Fever: No Clinical Suspicion of Infectio: No New/Unexplained Change in Ment: No Past Medical History: Diabetes Past Surgical History: Cholecysctectomy Family History Family history of heart diseas: No Other Last Tetanus: UNKNOWN Review of Systems Review of Systems Review of other systems All other systems reviewed and negative. Physical Exam Related Data Allergies: Coded Allergies: No Known Allergies (Unverified , 11/20/12) Triage Vital Signs Vital Signs Date Time Temp Pulse Resp B/P (MAP) Pulse Ox O2 Delivery O2 Flow Rate FiO2 02/05/20 11:37 98.1 89 18 160/94 97 Physical Exam CONSTITUTIONAL HENT EYES NECK PULMONARY CARDIOVASCULAR GASTROINTESTINAL GENITOURINARY SKIN MUSCULOSKELETAL NEUROLOGICAL PSYCHOLOGICAL Results Laboratory Result Diagram: 02/05/20 1218 02/05/20 1218 Laboratory Laboratory Tests Test 02/05/20 12:18 White Blood Count 7.55 x10e3/uL (4.8-10.8) Red Blood Count 4.94 x10e6/uL (4.3-5.7) Hemoglobin 13.8 g/dL (14.0-18.0) Hematocrit 42.8 % (38.2-49.6) Mean Corpuscular Volume 86.6 fL (81-99) Mean Corpuscular Hemoglobin 27.9 pg (28-32) Mean Corpuscular Hemoglobin Concent 32.2 g/dL (31-35) Red Cell Distribution Width 14.2 % (11.7-14.4) Platelet Count 202 x10e3/uL (140-360) Neutrophils (%) (Auto) 75.7 % (38.7-80.0) Lymphocytes (%) (Auto) 14.2 % (18.0-39.1) Monocytes (%) (Auto) 7.2 % (4.4-11.3) Eosinophils (%) (Auto) 1.7 % (0.0-6.0) Basophils (%) (Auto) 0.8 % (0.0-1.0) Neutrophils # (Auto) 5.7 (2.1-6.9) Lymphocytes # (Auto) 1.1 (1.0-3.2) Monocytes # (Auto) 0.5 (0.2-0.8) Eosinophils # (Auto) 0.1 (0.0-0.4) Basophils # (Auto) 0.1 (0.0-0.1) Absolute Immature Granulocyte (auto 0.03 x10e3/uL (0-0.1) Sodium Level 139 mmol/L (136-145) Potassium Level 4.6 mmol/L (3.5-5.1) Chloride Level 105 mmol/L (98-107) Carbon Dioxide Level 26 mmol/L (22-29) Anion Gap 12.6 mmol/L (8-16) Blood Urea Nitrogen 17 mg/dL (7-26) Creatinine 1.10 mg/dL (0.72-1.25) Estimat Glomerular Filtration Rate > 60 ML/MIN (60-) BUN/Creatinine Ratio 15 (6-25) Glucose Level 275 mg/dL (74-118) Calcium Level 9.6 mg/dL (8.4-10.2) Total Bilirubin 0.3 mg/dL (0.2-1.2) Aspartate Amino Transf (AST/SGOT) 14 IU/L (5-34) Alanine Aminotransferase (ALT/SGPT) 17 IU/L (0-55) Alkaline Phosphatase 58 IU/L (40-150) Creatine Kinase 42 IU/L (30-200) Creatine Kinase MB 1.30 ng/mL (0-5.0) Troponin I < 0.001 ng/mL (0-0.300) B-Type Natriuretic Peptide 52.2 pg/mL (0-100) Total Protein 7.3 g/dL (6.5-8.1) Albumin 4.1 g/dL (3.5-5.0) Globulin 3.2 g/dL (2.3-3.5) Albumin/Globulin Ratio 1.3 (0.8-2.0) Critical Care Time Subsequent provider I assumed direction of critical care for this patient from another provider of my specialty. Assessment & Plan Last Vital Signs Date Time Temp Pulse Resp B/P (MAP) Pulse Ox O2 Delivery O2 Flow Rate FiO2 02/05/20 11:37 98.1 89 18 160/94 97 Home Meds Reported Medications Quinapril Hcl (QUINAPRIL HCL) 10 Mg Tablet, 10 MG PO DAILY 11/20/12 Simvastatin (SIMVASTATIN) 10 Mg Tablet, 10 MG PO DAILY 11/20/12 Metformin Hcl (GLUCOPHAGE) 500 Mg Tablet, 1000 MG PO BID 11/20/12 IRA PULIDO DO Feb 05, 2020 14:39
--- OUTSIDE RECORDS SUMMARY | 2020-02-05 15:33 | XMS REPORT | Clinical Summary ---
Author Author [facility] Address Unknown Phone Unavailable Care Team Providers Care Laboratory Equipment Cleaner Name Role Phone Jose Huggins MD PCP [...] Advance Directives For more information, please contact: [phone] Patient District Associate Judge Explanation Type Date Recorded Advance Directives, Living Will and Medical Power of Plan Manager
--- OUTSIDE RECORDS SUMMARY | 2020-02-05 15:33 | XMS REPORT | Continuity of Care Document ---
Author Author VozeemeALEXANDREA Vozeeme Address Unknown Phone Unavailable Care Team Providers Care Optomechanical Technician Name Role Phone [employer] Unavailable Un available Problems Problem Status Onset Date Classification Date Reported Comments Source Vaccines Prophylactic Need Against Influenza Active 10/04/2013 [facility] Type 2 Diabetes Mellitus Active 10/04/2013 [facility] Hypertension Active 10/04/2013 [facility] Hyperlipidemia Active 10/04/2013 [facility] Bilious Diarrhea Active 10/04/2013 [facility] TMJ Pain Active 10/04/2013 [facility] Medications Medication Details Route Status Patient Instructions Ordering Provider Order Date Source Naproxen 375 MG Oral Tablet ; Start Date: 09/21/2013; End Date: 09/28/2013 (Active) Active 09/21/2013 [facility] MetFORMIN HCl 500 MG Oral Tablet ; Start Date: 05/22/2013; End Date: (Active) Active 05/22/2013 [facility] Quinapril HCl 20 MG Oral Tablet ; Start Date: ; End Date: (Active) Inactive [facility] Simvastatin 10 MG Oral Tablet ; Start Date: ; End Date: (Active) Inactive [facility] Quinapril HCl 20 MG Oral Tablet (Active) Active [facility] Simvastatin 10 MG Oral Tablet (Active) Active [facility] Allergies, Adverse Reactions, Alerts Substance Category Reaction Severity Reaction type Status Date Reported Comments Source No Known Drug Allergies drug a llergy drug aller gy Active [facility] Immunizations Immunization Date Given Site Status Last Updated Comments Source Fluzone Intramuscular Injectable 05/22/2013 completed [facility] Results No Data Provided for This [...] ADM Date DC Date Status Source AUDIT [id number] 05/22/2013 05/22/2013 [facility] ANN, Provi nabil: LEONARDO GARG, Status: Pen, Time: 12:45 PM [id number] 09/21/19 14 05/22/2013 [facility] AUDIT [id number] 09/21/2013 09/21/2013 [facility] AUDIT [id number] 09/22/2013 09/22/2013 [facility] AUDIT [id number] 09/25/2013 09/25/2013 [facility] AUDIT [id number] 10/04/2013 10/04/2013 [facility] ANN, Provi nabil: LEONARDO GARG, Status: Pen, Time: 1:15 PM [id number] 01/23/20 14 10/04/2013 [facility] Procedures No Data Provided for This Section Assessment and Plan No Data Provided for This Section Plan of Care Plan of Care Date Source [QLH] TSH, 3RD GENERATION W/REFLEX TO FT 4 09/21/2013 Routine[QLH] LIPID PANEL 09/21/2013 Routine[QLH] HEMOGLOBIN A1c 09/21/2013 Routine[QLH] CMP W/EGFR 09/21/2013 Routine[QLH] CBC (INCLUDES DIFF/PLT) 09/21/2013 Routine 09/22/2013 [facility] [QLH] TSH, 3RD GENERATION W/REFLEX TO FT 4 09/21/2013 Routine[QLH] LIPID PANEL 09/21/2013 Routine[QLH] HEMOGLOBIN A1c 09/21/2013 Routine[QLH] CMP W/EGFR 09/21/2013 Routine[QLH] CBC (INCLUDES DIFF/PLT) 09/21/2013 RoutineGastroenterology Referral 09/21/2013 Routine 09/21/2013 [facility] Social History Social History Date Source Marital History - Currently (Active) Never Drank Alcohol (Active) Occupation: Retired (Active) Never A Smoker (Active) 10/04/2013 [facility] Family History Value Date S ource Family history of Denial Of Any Signific ant Medical History (Active) 10/04/2013 [facility] Family history of Denial Of Any Signific ant Medical History (Active) 09/25/2013 [facility] Family history of Denial Of Any Signific ant Medical History (Active) 09/22/2013 [facility] Family history of Denial Of Any Signific ant Medical History (Active) 09/21/2013 [facility] Family history of Denial Of Any Signific ant Medical History (Active) 05/22/2013 [facility] Advance Directives Order Name Results Value Date Source Advance Directives Advance Dir ectives No Advance Directives available. 10/04/2013 [facility] Advance Directives Advance Dir ectives No Advance Directives available. 09/25/2013 [facility] Advance Directives Advance Dir ectives No Advance Directives available. 09/22/2013 [facility] Advance Directives Advance Dir ectives No Advance Directives available. 09/21/2013 [facility] Advance Directives Advance Dir ectives No Advance Directives available. 05/22/2013 [facility] Functional Status No Data Provided for This Section
--- OUTSIDE RECORDS SUMMARY | 2020-02-05 15:34 | XMS REPORT ---
Author Author [facility] t Organization [facility] Address [facility] [place] [address] [place] [id number] Phone Unavailable Care Team Providers Care Tub Wash Operator Name Role Phone LEONARDO GARG MD PCP Osiel PULIDO Attphys Unavailable LEONARDO GARG M.D. Attphys Unavailable KEVAN LADD P.A. Attphys Unavailable VITALY DANIEL APRN Attphys Unavailable ALETA DORSEY M.D. Attphys Unavailable JANEEN BYRD M.D. Attphys Unavailable VITALY DANIEL NP Attphys Unavailable LEXI GALICIA M.D. Attphys Unavailable ARON WHITMORE NP Attphys Unavailable OTONIEL MELISSA M.D. Attphys Unavailable ASUNCION GUALLPA M.D. Attphys Unavailable DUC LANDIS D.O. Attphys Unavailable Payers Payer Name Policy Type Policy Number Effective Date Expiration Date S ource [employer] Medicare Advantage [id number] [facility] Problems Condition Name Condition Details Condition Category Status Onset Date Resolution Date Last Treatment Date Treating Clinician Comments Source History of allergic rhinitis History of allergic rhinitis Problem Re solved [facility] History of Arthralgia of temporomandibular joint Histo ry of Arthralgia of temporomandibular joint Problem Resolved [facility] History of esophageal reflux History of esophageal reflux Problem Re solved [facility] History of Impacted cerumen of right ear History of Im pacted cerumen of right ear Problem Resolved [facility] History of Lightheadedness History of Lightheadedness Problem Resolved [facility] History of Localized primary osteoarthritis of lower l eg, right History of Localized primary osteoarthritis of lower leg, right Problem Resolved [facility] History of Lower abdominal pain History of Lower abdominal pain Problem Resolved [facility] History of Pain in joint of left shoulder History of P ain in joint of left shoulder Problem Resolved [facility] History of Right knee pain History of Right knee pain Problem Resolved [facility] History of Symptoms of upper respiratory infection (UR I) History of Symptoms of upper respiratory infection (URI) Problem Resolved [facility] History of TMJ (sprain of temporomandibular joint) His tory of TMJ (sprain of temporomandibular joint) Problem Resolved [facility] Influenza vaccine needed Influenza vaccine needed Problem Active [facility] Insomnia Insomnia Problem Active [facility] Type 2 diabetes mellitus Type 2 diabetes mellitus Problem Active [facility] Erectile dysfunction Erectile dysfunction Problem Active [facility] Advance directive discussed with patient Advance direc tive discussed with patient Problem Active [facility] Annual physical exam Annual physical exam Problem Active [facility] Hip osteoarthritis Hip osteoarthritis Problem Active [facility] Seasonal allergic rhinitis Seasonal allergic rhinitis Problem Active [facility] Left ear pain Left ear pain Problem Active [facility] Left otitis media Left otitis media Problem Active [facility] Vitiligo Vitiligo Problem Active [facility] BMI 27.0-27.9,adult BMI 27.0-27.9,adult Problem Active [facility] Peripheral vascular disease Peripheral vascular disease Problem Active [facility] Benign prostatic hyperplasia with lower urinary tract symptoms Benign prostatic hyperplasia with lower urinary tract symptoms Problem Active [facility] Left upper quadrant pain Left upper quadrant pain Problem Active [facility] Essential (primary) hypertension Essential (primary) hypertensio n Problem Active [facility] Enlarged prostate without lower urinary tract symptoms (luts) Enlarged prostate without lower urinary tract symptoms (luts) Problem Active [facility] Hyperlipidemia Hyperlipidemia Problem Active [facility] Vaccines Prophylactic Need Against Influenza Vaccines Prophylactic Need Against Influenza Active 10/04/2013 [facility] Problem Active 2013-10-04 23:13:12 [facility] Type 2 Diabetes Mellitus Type 2 Diabetes Mellitus Active 10/04/2013 [facility] Problem Active 2013-10-04 23:13: 12 [facility] Hypertension Hype rtension Active 10/04/2013 [facility] Problem Active 2013-10-04 23:13:12 [facility] Hyperlipidemia Hype rlipidemia Active 10/04/2013 [facility] Problem Active 2013-10-04 23:13:12 [facility] Bilious Diarrhea Bili ous Diarrhea Active 10/04/2013 [facility] Problem Active 2013-10-04 23:13:12 [facility] TMJ Pain TMJ Pain Active 10/04/2013 [facility] Problem Active 2013-10-04 23:13:12 [facility] Allergies, Adverse Reactions, Alerts Allergy Name Allergy Type Status Severity Reaction(s) Onset Date Inacti ve Date Treating Clinician Comments Source No Known Drug Allergies No Known Drug Allergies Active [facility] Family History Family Member Diagnosis Comments Start Date Stop Date Source Unknown Family Member Family history of Denial Of Any Significant Medical History Family History [facility] Social History Social Habit Start Date Stop Date Quantity Comments Source Sex Assigned At Angie lemos Edgardo Alcohol intake 2016-06-16 00:00:00 2016-06-16 00:00:00 Current drinker of alcohol (finding) Darinel Reynoso Alcohol Comment 2016-06-16 00:00:00 2016-06-16 00:00:00 4 drinks per week Darinel Reynoso Social History 2013-10-04 23:13:12 2013-10-04 23:13:12 [facility] Smoking Status Start Date Stop Date Source Ex-smoker (finding) [facility] Never smoker Tena Babita moody Medications Ordered Medication Name Filled Medication Name Start Date Stop Da te Current Medication? Ordering Clinician Indication Dosage Frequency Signature (SIG) Comments Components Source Tamsulosin HCl - 0.4 MG Oral Capsule Tamsulosin HCl - 0.4 MG Oral Capsule 2019-10-30 00:00:00 Yes KEVAN Marie 1 QD TAKE 1 CAPSULE DAILY [facility] metFORMIN (GLUCOPHAGE) 500 MG tablet 2016-04-28 00:00:00 Yes Darinel Reynoso Glimepiride 2 MG Oral Tablet Glimepiride 2 MG Oral Tablet 2015-05-08 00:00:00 Yes LEONARDO GARG M.D. 1 Q0.5D TAKE 1 TABLET TWICE DAILY Wit h meals [facility] Quinapril HCl - 20 MG Oral Tablet Quinapril HCl - 20 MG Oral Tablet 2014-12-04 00:00:00 Yes LEONARDO GARG M.D. T TRISH 1/2 (ONE-HALF) TABLET BY MOUTH ONCE DAILY. [facility] Simvastatin 20 MG Oral Tablet Simvastatin 20 MG Oral Tablet 2013 00:00:00 Yes LEONARDO GARG M.D. TAKE 1 TABLET BY MOUT H AT BEDTIME [facility] Simvastatin 10 MG Oral Tablet 2013-09-22 22:46:42 Yes (Active) [facility] Naproxen 375 MG Oral Tablet 2013-09-21 06:00:00 Yes ; Start Date: 09/21/2013; End Date: 09/28/2013 (Active) [facility] Quinapril HCl 20 MG Oral Tablet 2013-05-22 22:16:25 Yes (Active) [facility] MetFORMIN HCl 500 MG Oral Tablet 2013-05-22 05:00:00 Yes ; Start Date: 05/22/2013; End Date: (Active) [facility] metFORMIN HCl - 500 MG Oral Tablet metFORMIN HCl - 500 MG Or al Tablet 2013-05-22 00:00:00 Yes LEONARDO GARG M.D. T TRISH 2 TABLETS BY MOUTH TWICE DAILY DIRECTED [facility] Quinapril HCl 20 MG Oral Tablet Yes ; Start Date: ; End Date: (Active) [facility] Simvastatin 10 MG Oral Tablet Yes ; Start Date: ; End Date: (Active) [facility] Immunizations Ordered Immunization Name Filled Immunization Name Date Status Comments Source Fluzone High-Dose 0.5 ML Intramuscular Suspension Prefilled Syringe 2019-06-06 08:36:00 Completed [facility] Shingrix 50 MCG Intramuscular Suspension Reconstituted 2019-01-18 00:00:00 Completed [facility] Shingrix 50 MCG Intramuscular Suspension Reconstituted 2018-11-18 00:00:00 Completed [facility] Fluzone High-Dose 0.5 ML Intramuscular Suspension Prefilled Syringe 2018-06-16 16:36:00 Completed [facility] Fluzone High-Dose 0.5 ML Intramuscular Suspension Prefilled Syringe 2017-06-21 14:25:00 Completed [facility] Prevnar 13 Intramuscular Suspension 2016-10-19 14:24:00 Co mpleted [facility] Fluzone High-Dose 0.5 ML Intramuscular Suspension Prefilled Syringe 2016-06-17 16:27:00 Completed [facility] Fluvirin INJ 2015-05-28 13:33:00 [facility] 2014-09-28 13:45:00 [facility] Fluzone INJ 2014-05-29 14:35:00 Completed [facility] Pneumococcal polysaccharide vaccine, 23 valent 2014-05 14:35:00 Completed [facility] Fluzone INJ 2013-05-22 15:22:00 Completed [facility] Vital Signs Vital Name Observation Time Observation Value Comments Source Systolic blood pressure 2019-10-30 08:55:00 133 mm[Hg] [facility] Diastolic blood pressure 2019-10-30 08:55:00 82 mm[Hg] [facility] Heart Rate 2019-10-30 08:55:00 86 /min [facility] Systolic blood pressure 2019-10-30 08:41:00 164 mm[Hg] Loca tion: [place]; Position: Sitting [facility] Diastolic blood pressure 2019-10-30 08:41:00 84 mm[Hg] Loc ation: [place]; Position: Sitting [facility] Heart Rate 2019-10-30 08:41:00 102 /min [facility] Body height 2019-10-30 08:41:00 68 [in_us] [facility] Weight 2019-10-30 08:41:00 175 [lb_av] [facility] Body mass index (BMI) [Ratio] 2019-10-30 08:41:00 26.61 kg/m2 [facility] Body temperature 2019-10-30 08:41:00 97.3 [degF] Method: Temporal [facility] Respiratory rate 2019-10-30 08:41:00 16 /min [facility] BP Systolic 2019-08-14 10:39:00 113 mm[Hg] Location: [place]; Positi on: Sitting [facility] BP Diastolic 2019-08-14 10:39:00 70 mm[Hg] Location: [place]; Pos[place] on: Sitting [facility] Height 2019-08-14 10:39:00 68 [in_us] [facility] Weight 2019-08-14 10:39:00 177.3 [lb_av] [facility] Body Mass Index Calculated 2019-08-14 10:39:00 26.96 kg/m2 [facility] Temperature 2019-08-14 10:39:00 97.8 [degF] Method: Oral [facility] Heart Rate 2019-08-14 10:39:00 86 /min [facility] Respiration Rate 2019-08-14 10:39:00 16 /min [facility] BP Systolic 2019-06-16 10:08:00 132 mm[Hg] Location: [place]; Positi on: Sitting [facility] BP Diastolic 2019-06-16 10:08:00 74 mm[Hg] Location: [place]; Pos[place] on: Sitting [facility] Height 2019-06-16 10:08:00 68 [in_us] [facility] Weight 2019-06-16 10:08:00 178 [lb_av] [facility] Body Mass Index Calculated 2019-06-16 10:08:00 27.07 kg/m2 [facility] Temperature 2019-06-16 10:08:00 98.2 [degF] Method: Temporal [facility] Respiration Rate 2019-06-16 10:08:00 16 /min [facility] Heart Rate 2019-06-16 10:08:00 83 /min [facility] BP Systolic 2019-06-06 08:26:00 133 mm[Hg] Location: [place]; Pos[place] on: Sitting [facility] BP Diastolic 2019-06-06 08:26:00 74 mm[Hg] Location: [place]; Pos[place] on: Sitting [facility] Height 2019-06-06 08:26:00 68 [in_us] [facility] Weight 2019-06-06 08:26:00 178 [lb_av] [facility] Body Mass Index Calculated 2019-06-06 08:26:00 27.07 kg/m2 [facility] Temperature 2019-06-06 08:26:00 98.3 [degF] Method: Temporal [facility] Respiration Rate 2019-06-06 08:26:00 16 /min [facility] Heart Rate 2019-06-06 08:26:00 80 /min [facility] BP Systolic 2019-05-16 14:06:00 129 mm[Hg] Location: LUE; Positi on: Sitting [facility] BP Diastolic 2019-05-16 14:06:00 78 mm[Hg] Location: LUE; Positi on: Sitting [facility] Height 2019-05-16 14:06:00 68 [in_us] [facility] Weight 2019-05-16 14:06:00 177.5 [lb_av] [facility] Body Mass Index Calculated 2019-05-16 14:06:00 26.99 kg/m2 [facility] Temperature 2019-05-16 14:06:00 97.9 [degF] Method: Temporal [facility] Heart Rate 2019-05-16 14:06:00 95 /min Location: L Brachial Artery; [facility] Respiration Rate 2019-05-16 14:06:00 16 /min Quality: Normal [facility] BP Systolic 2019-04-27 08:24:00 138 mm[Hg] Location: LUE; Positi on: Sitting [facility] BP Diastolic 2019-04-27 08:24:00 79 mm[Hg] Location: LUE; Positi on: Sitting [facility] Height 2019-04-27 08:24:00 68 [in_us] [facility] Weight 2019-04-27 08:24:00 173.0625 [lb_av] [facility] Body [facility] Index Calculated 2019-04-27 08:24:00 26.31 kg/m2 [facility] Temperature 2019-04-27 08:24:00 97.4 [degF] Method: Temporal [facility] Heart Rate 2019-04-27 08:24:00 75 /min [facility] Respiration Rate 2019-04-27 08:24:00 16 /min [facility] BP Systolic 2019-04-14 10:27:00 126 mm[Hg] Location: LUE; Positi on: Sitting [facility] BP Diastolic 2019-04-14 10:27:00 69 mm[Hg] Location: LUE; Positi on: Sitting [facility] Height 2019-04-14 10:27:00 68 [in_us] [facility] Weight 2019-04-14 10:27:00 176.1 [lb_av] [facility] Body Mass Index Calculated 2019-04-14 10:27:00 26.78 kg/m2 [facility] Temperature 2019-04-14 10:27:00 98.1 [degF] Method: Oral [facility] Respiration Rate 2019-04-14 10:27:00 16 /min [facility] Heart Rate 2019-04-14 10:27:00 90 /min [facility] BP Systolic 2019-01-12 13:16:00 103 mm[Hg] Location: [place]; Positi on: Sitting [facility] BP Diastolic 2019-01-12 13:16:00 67 mm[Hg] Location: [place]; Pos[place] on: Sitting [facility] Height 2019-01-12 13:16:00 68 [in_us] [facility] Weight 2019-01-12 13:16:00 175.4 [lb_av] [facility] Body Mass Index Calculated 2019-01-12 13:16:00 26.67 kg/m2 [facility] Temperature 2019-01-12 13:16:00 98.2 [degF] Method: Oral [facility] Heart Rate 2019-01-12 13:16:00 96 /min [facility] Respiration Rate 2019-01-12 13:16:00 16 /min [facility] BP Systolic 2018-10-11 10:53:00 127 mm[Hg] Location: [place]; Pos[place] on: Sitting [facility] BP Diastolic 2018-10-11 10:53:00 73 mm[Hg] Location: [place]; Pos[place] on: Sitting [facility] Height 2018-10-11 10:53:00 68 [in_us] [facility] Weight 2018-10-11 10:53:00 178.1 [lb_av] [facility] Body Mass Index Calculated 2018-10-11 10:53:00 27.08 kg/m2 [facility] Temperature 2018-10-11 10:53:00 97.7 [degF] Method: Oral [facility] Heart Rate 2018-10-11 10:53:00 96 /min [facility] Respiration Rate 2018-10-11 10:53:00 16 /min [facility] BP Systolic 2018-06-16 13:21:00 125 mm[Hg] Location: LUE; Positi on: Sitting [facility] BP Diastolic 2018-06-16 13:21:00 75 mm[Hg] Location: LUE; Positi on: Sitting [facility] Height 2018-06-16 13:21:00 68 [in_us] [facility] Weight 2018-06-16 13:21:00 179.1 [lb_av] [facility] Body Mass Index Calculated 2018-06-16 13:21:00 27.23 kg/m2 [facility] Temperature 2018-06-16 13:21:00 98 [degF] Method: Oral [facility] Heart Rate 2018-06-16 13:21:00 81 /min [facility] Respiration Rate 2018-06-16 13:21:00 16 /min [facility] BP Systolic 2018-03-14 08:07:00 120 mm[Hg] Location: LUE; Positi on: Sitting [facility] BP Diastolic 2018-03-14 08:07:00 66 mm[Hg] Location: LUE; Positi on: Sitting [facility] Height 2018-03-14 08:07:00 68 [in_us] [facility] Weight 2018-03-14 08:07:00 179 [lb_av] [facility] Body Mass Index Calculated 2018-03-14 08:07:00 27.22 kg/m2 [facility] Temperature 2018-03-14 08:07:00 97.3 [degF] Method: Temporal [facility] Heart Rate 2018-03-14 08:07:00 75 /min Location: L Radial; [facility] Respiration Rate 2018-03-14 08:07:00 16 /min Quality: Normal [facility] BP Systolic 2018-02-10 13:11:00 125 mm[Hg] Location: LUE; Pos[place] on: Sitting [facility] BP Diastolic 2018-02-10 13:11:00 73 mm[Hg] Location: LUE; Pos[place] on: Sitting [facility] Height 2018-02-10 13:11:00 68.5 [in_us] [facility] Weight 2018-02-10 13:11:00 177.0 [lb_av] [facility] Body Mass Index Calculated 2018-02-10 13:11:00 26.52 kg/m2 [facility] Temperature 2018-02-10 13:11:00 98.3 [degF] Method: Oral [facility] Heart Rate 2018-02-10 13:11:00 92 /min [facility] Respiration Rate 2018-02-10 13:11:00 16 /min [facility] BP Systolic 2017-10-19 13:11:00 120 mm[Hg] Location: ESTHER [place] on: Sitting [facility] BP Diastolic 2017-10-19 13:11:00 69 mm[Hg] Location: ESTHER [place] on: Sitting [facility] Height 2017-10-19 13:11:00 68.5 [in_us] [facility] Weight 2017-10-19 13:11:00 179.1 [lb_av] [facility] Body Mass Index Calculated 2017-10-19 13:11:00 26.84 kg/m2 [facility] Temperature 2017-10-19 13:11:00 97.9 [degF] Method: Oral [facility] Heart Rate 2017-10-19 13:11:00 88 /min [facility] Respiration Rate 2017-10-19 13:11:00 16 /min [facility] BP Systolic 2017-08-20 07:40:00 132 mm[Hg] Location: ESTHER [place] on: Sitting [facility] BP Diastolic 2017-08-20 07:40:00 80 mm[Hg] Location: [place]; [place] on: Sitting [facility] Height 2017-08-20 07:40:00 68.5 [in_us] [facility] Weight 2017-08-20 07:40:00 175 [lb_av] [facility] Body Mass Index Calculated 2017-08-20 07:40:00 26.22 kg/m2 [facility] Temperature 2017-08-20 07:40:00 98.9 [degF] Method: Temporal [facility] Heart Rate 2017-08-20 07:40:00 87 /min [facility] Respiration Rate 2017-08-20 07:40:00 16 /min [facility] BP Systolic 2017-08-09 11:22:00 130 mm[Hg] Location: LUE; Positi on: Sitting [facility] BP Diastolic 2017-08-09 11:22:00 76 mm[Hg] Location: [place]; Pos[place] on: Sitting [facility] Height 2017-08-09 11:22:00 68.5 [in_us] [facility] Weight 2017-08-09 11:22:00 175.125 [lb_av] [facility] Body Mass Index Calculated 2017-08-09 11:22:00 26.24 kg/m2 [facility] Temperature 2017-08-09 11:22:00 98.7 [degF] Method: Temporal [facility] Heart Rate 2017-08-09 11:22:00 102 /min [facility] Respiration Rate 2017-08-09 11:22:00 16 /min Quality: Normal [facility] Procedures Procedure Date / Time Performed Performing Clinician Sour e [[facility]] CULTURE, URINE, ROUTINE 2019-10-30 00:00:00 [facility] [[facility]] URINALYSIS, COMPLETE 2019-10-30 00:00:00 [facility] [[facility]] HEMOGLOBIN A1c 2019-08-14 00:00:00 [facility] Extremity lower art Dopp bilat [place] w press [id number] 2019-08-14 00 :00:00 [facility] US Abdomen complete [id number] 2019-06-06 00:00:00 [facility] HEMOGLOBIN A1c 2019-04-14 00:00:00 [facility] [[facility]] CBC (INCLUDES DIFF/PLT) 2019-01-12 00:00:00 [facility] [[facility]] CMP W/EGFR 2019-01-12 00:00:00 [facility] [[facility]] HEMOGLOBIN A1c 2019-01-12 00:00:00 [facility] [[facility]] LIPID PANEL 2019-01-12 00:00:00 [facility] [facility] [[facility]] MICROALBUMIN, RANDOM URINE (W/CREATININE) 2019-01-12 00:00 :00 [facility] [[facility]] TSH, 3RD GENERATION 2019-01-12 00:00:00 [facility] HEMOGLOBIN A1c 2018-10-11 00:00:00 [facility] X-ray of chest, single view 2018-08-29 00:00:00 LEO WADE [facility]I [facility] [[facility]] HEMOGLOBIN A1c 2018-06-16 00:00:00 [facility] [[facility]] MICROALBUMIN, RANDOM URINE (W/CREATININE) 2018-03-14 00:00 :00 [facility] [[facility]] CBC (INCLUDES DIFF/PLT) 2018-02-10 00:00:00 [facility] [[facility]] CMP W/EGFR 2018-02-10 00:00:00 [facility] [[facility]] HEMOGLOBIN A1c 2018-02-10 00:00:00 [facility] [[facility]] LIPID PANEL 2018-02-10 00:00:00 [facility] [[facility]] TSH, 3RD GENERATION 2018-02-10 00:00:00 Un [facility] [[facility]] HEMOGLOBIN A1c 2017-10-19 00:00:00 [facility] History of Back Surgery [facility] History of Rotator Cuff Repair [facility] History of Cholecystectomy [facility] Plan of Care Planned Activity Planned Date Details Comments Source Future Scheduled Test 2020-04-06 00:00:00 INFLUENZA VACCINE [code = INFLUENZA VACCINE] [facility] Future Scheduled Test 2005 00:00:00 65+ PNEUMOCOCCAL V ACCINE (1 of 2 - PCV13) [code = 65+ PNEUMOCOCCAL VACCINE (1 of 2 - PCV13)] [facility] Future Scheduled Test 1990 00:00:00 SHINGLES VACCINES (#1) [code = SHINGLES VACCINES (#1)] [facility] Scheduled Test Plan of Care [code = 91665-0] [facility] Future Scheduled Test Plan of Care [code = 09037-8] [facility] Encounters Start Date/Time End Date/Time Encounter Type Admission Type Attendi ng Clinicians Care Facility Care Department Encounter ID Source 2019-12-15 09:30:2019-12-15 09:30:00 Appointment; LEONARDO GARG M.D. WALTON, HAROLD, M.D. [facility], [address] [id number] [facility] 2019-10-30 09:00:00 2019-10-30 09:00:00 Appointment; SAYRA LADD P.A. SPOONER, JOSEPH, P.A. [facility] [id number] [facility] 2019-08-14 11:00:00 2019-08-14 11:00:00 Appointment; LEONARDO GARG M.D. WALTON, HAROLD, M.D. [facility], [address] [id number] [facility] 2019-06-16 10:15:00 2019-06-16 10:15:00 Appointment; MONICA DANIEL APRN HOANG, CHRISTINA, APRN [facility], [address] [id number] [facility] 2019-06-06 08:30:00 2019-06-06 08:30:00 Appointment; MONICA DANIEL APRN HOANG, CHRISTINA, APRN [facility], [address] [id number] [facility] 2019-05-16 14:00:00 2019-05-16 14:00:00 Appointment; JAMES DORSEY M.D. PERKISON, WILLIAM, M.D. [facility] [id number] [facility] 2019-04-27 08:15:00 2019-04-27 08:15:00 Appointment; JANEEN BYRD M.D. VAZQUEZ, NOEMI, M.D. [facility] [id number] [facility] 2019-04-14 11:00:00 2019-04-14 11:00:00 Appointment; LEONARDO GARG M.D. WALTON, HAROLD, M.D. [facility], [address] [id number] [facility] 2019-01-12 13:30:00 2019-01-12 13:30:00 Appointment; LEONARDO GARG M.D. WALTON, HAROLD, M.D. [facility] [id number] [facility] 2018-10-11 10:30:00 2018-10-11 10:30:00 Appointment; LEONARDO GARG M.D. WALTON, HAROLD, M.D. [facility] [id number] [facility] 2018-08-29 10:20:00 2018-08-29 14:20:00 Departed Emergency Room 1 IRA NOEL [facility] [id number] [facility] 2018-06-16 13:30:00 2018-06-16 13:30:00 Appointment; LEONARDO GARG M.D. WALTON, HAROLD, M.D. [facility] [id number] [facility] 2018-06-16 13:30:00 2018-06-16 13:30:00 Appointment; LEONARDO GARG M.D. WALTON, HAROLD, M.D. [facility] [id number] [facility] 2018-03-14 08:30:00 2018-03-14 08:30:00 Appointment; MONICA DANIEL APRN HOANG, CHRISTINA, APRN [facility] [id number] [facility] 2018-02-10 13:30:00 2018-02-10 13:30:00 Appointment; LEONARDO GARG M.D. WALTON, HAROLD, M.D. [facility] [address] [id number] [facility] 2017-12-17 10:00:00 2017-12-17 10:00:00 Appointment; MONICA DANIEL APRN HOANG, CHRISTINA, APRN [facility] [id number] [facility] 2017-10-19 13:15:00 2017-10-19 13:15:00 Appointment; LEONARDO GARG M.D. WALTON, HAROLD, M.D. [facility] [id number] [facility] 2017-08-20 07:30:00 2017-08-20 07:30:00 Appointment; DANIEL, MONICAJOSE ESCOTO CHRISTINA, NP [facility] [address] [id number] [facility] 2017-08-09 11:00:00 2017-08-09 11:00:00 Appointment; ALESIA GALICIA M.D. WILLISTON, HUBERT, M.D. [facility] [id number] [facility] 2017-06-21 13:30:00 2017-06-21 13:30:00 Appointment; LEONARDO GARG M.D. WALTON, HAROLD, M.D. [facility] UTP [id number] [facility] 2017-02-17 09:30:00 2017-02-17 09:30:00 Appointment; MONICA DANIEL NP HOANG, CHRISTINA, NP UTP [facility] [id number] [facility] 2016-10-19 13:15:00 2016-10-19 13:15:00 Appointment; LEONARDO GARG M.D. WALTON, HAROLD, M.D. [facility] [id number] [facility] 2016-06-25 18:45:00 2016-06-25 18:45:00 Appointment; ARON WHITMORE NP TRAN, THUY, NP UTP [facility]TP [id number] [facility] 2016-06-17 15:30:00 2016-06-17 15:30:00 Appointment; LEONARDO GARG M.D. WALTON, HAROLD, M.D. [facility] [id number] [facility] 2016-01-30 12:45:00 2016-01-30 12:45:00 Appointment; LEONARDO GARG M.D. WALTON, HAROLD, M.D. [facility] [address] [id number] [facility] 2015-12-26 14:00:00 2015-12-26 14:00:00 Appointment; OTONIEL MELISSA M.D. HUANG, EDDIE, M.D. [facility] [id number] [facility] 2015-12-19 14:00:00 2015-12-19 14:00:00 Appointment; OTONIEL MELISSA M.D. HUANG, EDDIE, M.D. [facility]TP [id number] [facility] 2015-12-12 14:00:00 2015-12-12 14:00:00 Appointment; OTONIEL MELISSA M.D. HUANG, EDDIE, M.D. [facility] UTP [id number] [facility] 2015-11-21 15:30:00 2015-11-21 15:30:00 Appointment; OTONIEL MELISSA M.D. HUANG, EDDIE, M.D. [facility]TP [id number] [facility] 2015-11-04 11:15:00 2015-11-04 11:15:00 Appointment; KARYN GUALLPA M.D. BORTOLOTTI, JULIE, M.D. [facility] UTP [id number] [facility] 2015-10-03 12:00:00 2015-10-03 12:00:00 Appointment; MONICA DANIEL NP HOANG, CHRISTINA, NP UTP [facility]TP [id number] [facility] 2015-08-19 14:45:00 2015-08-19 14:45:00 Appointment; DUC LANDIS D.O. YEH, SHAO-CHUN, D.O. [facility] UTP [id number] [facility] 2014-01-22 13:15:00 2013-10-04 23:13:12 FUP, Provider: LEONARDO SERNA, Status: Dharmesh, Time: 1:15 PM [facility] [id number] [facility] 2013-10-04 17:13:12 2013-10-04 23:13:12 AUDIT [facility] [id number] [facility] 2013-10-04 17:13:12 2013-10-04 17:13:12 Outpatient MHIEA LT MHIEALT [id number] 2013-09-25 15:32:16 2013-09-25 21:32:15 AUDIT [facility] [id number] [facility] 2013-09-25 15:32:16 2013-09-25 15:32:15 Outpatient MHIEA LT [facility] [id number] 2013-09-22 16:46:43 2013-09-22 22:46:42 AUDIT MHIEALT [facility] [id number] [facility] 2013-09-22 16:46:43 2013-09-22 16:46:42 Outpatient MHIEA LT [facility]IEALT [id number] 2013-09-21 13:34:14 2013-09-21 19:34:13 AUDIT [facility] [id number] [facility] 2013-09-21 13:34:14 2013-09-21 13:34:13 Outpatient MHIEA LT [facility]IEALT [id number] 2013-09-21 12:45:00 2013-05-22 22:16:25 FUP, Provider: LEONARDO SERNA, Status: Pen, Time: 12:45 PM [facility] [id number] [facility] 2013-05-22 17:16:26 2013-05-22 22:16:25 AUDIT [facility] [id number] [facility] 2013-05-22 17:16:26 2013-05-22 17:16:25 Outpatient MHIEA LT [facility]IEALT [id number] Results Test Description Test Time Test Comments Results Result Comments Source CHEST SINGLE (PORTABLE) 2020-02-05 13:32:00 [place] [address] Patient Name: ALEXANDREA BENITEZ MR #: [id number] : 1940 Age/Sex: 79/M Req #: [id number] Adm Physician: Ordered by: IRA PULIDO DO Report #: [id number] Location: ER Room/Bed: Procedure: [id number] DX/CHEST SINGLE (PORTABLE) Exam Date: Exam Time: REPORT STATUS: Signed EXAM: CHEST SINGLE (PORTABLE) DATE: 02/05/2020 1:08 PM INDICATION: Chest pain COMPARISON: None FINDINGS: The trachea is midline. The lungs are symmetrically expanded without evidence for large focal consolidation, pneumothorax, or significant pleural effusion. The cardiomediastinal silhouette and pulmonary vasculature are within normal limits. No acute osseous abnormality is identified. The surrounding soft tissues are unremarkable. IMPRESSION: No acute cardiopulmonary process identified. Signed by: Dr. Ion Aguilar MD on 02/05/2020 1:32 PM Dictated By: ION AGUILAR MD 31 Transcribed By: FELIX on 02/05/20 133 COPY TO: IRA PULIDO DO [O] Urine Dipstick (In Office) 2019-10-30 09:26:00 Test Item Glucose (test code = Glucose) pos A LEUKOCYTES (test code = LEUKOCYTES) neg N NITRITE; Normal (test code = 24637-0) neg N UROBILINOGEN; Normal (test code = 10640-7) neg N PROTEIN; Normal (test code = 41595-3) neg N pH (test code = pH) 6 A URINE BLOOD; Normal (test code = 52008-9) neg N SPECIFIC GRAVITY; Abnormal (test code = 2965-2) 1.010 A KETONES; Normal (test code = 42476-3) neg N BILIRUBIN; Normal (test code = 06429-8) neg N COLOR URINE; Normal (test code = 5778-6) yellow N APPEARANCE; Normal (test code = 5767-9) CLEAR N [facility]] URINALYSIS, [id number] 00:00:00* Test Item Value Reference Range Interpretation Comments COLOR; Normal (test code = 5778-6) YELLOW YELLOW N APPEARANCE (test code = APPEARANCE) CLEAR CLEAR N SPECIFIC GRAVITY; Normal (test code = 2965-2) 1.014 1.001-1. 035 N PH; Normal (test code = 2756-5) 6.0 5.0-8.0 N GLUCOSE; Abnormal (test code = 1547-9) 2+ NEGATIVE A BILIRUBIN; Normal (test code = 39610-2) NEGATIVE NEGATIVE N KETONES; Normal (test code = 05423-9) NEGATIVE NEGATIVE N OCCULT BLOOD; Normal (test code = 64466-8) NEGATIVE NEGATIVE N PROTEIN; Normal (test code = 75188-4) NEGATIVE NEGATIVE N NITRITE; Normal (test code = 65708-3) NEGATIVE NEGATIVE N LEUKOCYTE ESTERASE (test code = LEUKOCYTE ESTERASE) NEGATIVE NE GATIVE N WBC; Normal (test code = 6690-2) NONE SEEN < OR = 5 N RBC; Normal (test code = 789-8) NONE SEEN < OR = 2 N SQUAMOUS EPITHELIAL CELLS; Normal (test code = 78485-8) NONE SEEN < OR = 5 N BACTERIA; Normal (test code = 630-4) NONE SEEN NONE SEEN N HYALINE CAST; Normal (test code = 93955-0) NONE SEEN NONE SEEN N [facility]] CULTURE, URINE, [id number] 00:00:00* Test Item Value Reference Range Interpretation Comments CULTURE (test code = CULTURE) See Comment CULTURE, URINE, ROUTINE Micro Number: [id number] Test Status: Final Specimen Source: URINE Specimen Quality: Adequate Result: Multiple organisms present, each less than 10,000 CFU/mL. These organisms, commonly found on external and internal genitalia, are considered to be colonizers. No further testing performed. [facility] Extremity lower art Dopp bilat [email or web address] press [id number] 2019-08-21 13:02:00Please refer to heart lab report, located under Vascular in CARE4.--Electronically Signed by: Bridger Valentin 08/21/1917:29[facility] HEMOGLOBIN A1c 2019-08-14 12:56:00* Test Item Value Reference Range Interpretation Comments HEMOGLOBIN A1c; Above High Threshold (test code = 4548-4) 7.8 {% of total} <5.7 For someone without known diabetes, a he [facility] M4iqxayh of 6.5% or greater indicates that they [...] A1c for diagnosis of diabetes for children. [facility] Abdomen complete [id number] 08:35:00EXAM: US ABDOMEN COMPLETEDATE: 06/12/2019 8:35 CDTINDICATION: [...] by: Sal Bella MDDictated Date/time: 06/12/19 09:25Electronica ll Signed by: Sal Bella MD 06/12/1909:35FINAL [facility]] HEMOGLOBIN [id number] 14:17:00* Test Item Value Reference Range Interpretation Comments HEMOGLOBIN A1c; Above High Threshold (test code = 4548-4) 7.2 {% of total} <5.7 For someone without known diabetes, a he moglobin L6aymeix of 6.5% or greater indicates that they [...] A1c for diagnosis of diabetes for children. [facility]] LIPID [id number] 00:00:00* Test Item Value Reference Range Interpretation Comments CHOLESTEROL, TOTAL; Normal (test code = 2093-3) 118 mg/dl <200 N HDL CHOLESTEROL; Normal (test code = 2085-9) 42 mg/dl >40 N TRIGLYCERIDES; Normal (test code = 2571-8) 129 mg/dl <150 N LDL-CHOLESTEROL; Normal (test code = 34821-8) 55 {MG/DL ASILAJA} N Reference range: <100 Desirable range <100 mg/dL for primary prevention; <70 mg/dL for patients with CHD or diabetic patients with > or = 2 CHD risk factors. LDL-C is now calculated using the Salvador-Andrea calculation, which is a validated novel method providing better accuracy than the Friedewald equation in the estimation of LDL-C. Salvador SS et al. [place]. 2013;310(19): 0961-0462 (http ://education.[employer]/faq/BZU351) CHOL/HDLC RATIO (test code = CHOL/HDLC RATIO) 2.8 {CALC} <5.0 N NON HDL CHOLESTEROL (test code = NON HDL CHOLESTEROL) 76 {MG/DL CA L} <130 N For patients with diabetes plus 1 major ASCVD risk factor, treating to a non-HDL-C goal of <100 mg/dL (LDL-C of <70 mg/dL) is considered a therapeutic option. [facility]] MICROALBUMIN, RANDOM URINE (W/CREATININE) 2019-01-12 00:00:00* Test [...] a patient to bewithin a diagnostic category. [facility]] CMP [id number] 00:00:00* Test Item Value Reference Range Interpretation [...] is approximately 13% higher for peopleidentified as -Tajik. eGFR NON- (test code = eGFR NON-MOISES N SLOVAK) 74 {ML/MIN/1.7} > OR = 60 N [...] N BILIRUBIN, TOTAL; Normal (test code = 46192-3) 0.5 mg/dl 0.2-1.2 N ALKALINE PHSPHATASE (test code = ALKALINE PHSPHATASE) 48 u/l 40-115 N AST; Normal (test code = 1916-6) 12 u/l 10-35 N ALT; Normal (test code = 1742-6) 11 u/l 9-46 N [facility]] CBC (INCLUDES DIFF/PLT)2019-01-12 00:00:00* Test Item Value Reference Range Interpretation Comments WHITE BLOOD CELL COUNT (test code = WHITE BLOOD CELL COUNT) 5.8 {Thousand/u} 3.8-10.8 N RED BLOOD CELL COUNT (test code = RED BLOOD CELL COUNT) 4.66 {Million/uL} 4.20-5.80 N HEMAGLOBIN; Normal (test code = 47582-6) 13.7 g/dl 13.2-17.1 N HEMATOCRIT; Normal (test code = 4544-3) 40.1 % 38.5-50.0 N MCV; Normal (test code = 787-2) 86.1 fL 80.0-100.0 N MCHC; Normal (test code = 93840-3) 34.2 g/dl 32.0-36.0 N RDW; Normal (test code = 788-0) 13.3 % 11.0-15.0 N PLATELET COUNT; Normal (test code = 777-3) 225 {Thousand/u} 140-400 N MPV; Normal (test code = 87891-5) 11.0 fL 7.5-12.5 N ABSOLUTE NEUTROPHILS (test code = ABSOLUTE NEUTROPHILS) 3654 {cells/uL} 7918-6956 N ABSOLUTE LYMPHOCYTES (test code = ABSOLUTE [...] % N MONOCYTES; Normal (test code = 62607-6) 8.3 % N EOSINOPHILS; Normal (test code = 19894-8) 4.3 % N BASOPHILS; Normal (test code = 27317-5) 0.9 % N [facility]] TSH, 3RD [id number] 00:00:00* Test Item Value Reference Range Interpretation Comments TSH; Normal (test code = 47021-4) 1.86 {MIU/L} 0.40-4.50 N [facility]] HEMOGLOBIN [id number] 00:00:00* Test Item Value Reference Range Interpretation Comments HEMOGLOBIN A1c; Above High Threshold (test code = 4548-4) 7.2 {% of total} <5.7 For someone without known diabetes, a he moglobin W9ysrpmg of 6.5% or greater indicates that they [...] A1c for diagnosis of diabetes for children. [facility]] HEMOGLOBIN [id number] 10:26:00* Test Item Value Reference Range Interpretation Comments HEMOGLOBIN A1c; Above High Threshold (test code = 4548-4) 7.1 {% of total} <5.7 For someone without known diabetes, a he moglobin M7bdyglu of 6.5% or greater indicates that they [...] A1c for diagnosis of diabetes for children. [facility]iciansInfluenza Virus Types A,B [id number] 13:05:00* Test Item Value Reference Range Interpretation Comments Influenza Virus Types A,B Antigen (test code = 59056-6) NEGATIVE NEGATIVE [facility] Streptococcus [id number] 13:05:00* Test Item Value Reference Range Interpretation Comments Group A Streptococcus Screen (test code = 78626-5) NEGATIVE NEG ATIVE [facility]2018-08-29 11:57:00 [facility] [address] [address] Patient Name: ALEXANDREA BENITEZ MR #: [id number] : 1940 Age/Sex: 77/M Req #: [id number] Adm Physician: Ordered by: AMARJIT WADE [employer]ER INSPECTOR Report #: [id number] Location: ER Room/Bed: Procedure: [id number] DX/CHEST SINGLE (NOT PORTABLE) Exam Date: 08/29/18 [...] MD, MD 1158 COPY TO: LYNNE WADE NP [[facility]] HEMOGLOBIN [id number] 08:34:00* Test Item Value Reference Range Interpretation Comments HEMOGLOBIN A1c; Above High Threshold (test code = 4548-4) 7.1 {% of total} <5.7 For someone without known diabetes, a he [facility] D1jyanvx of 6.5% or greater indicates that they [...] A1c for diagnosis of diabetes for children. [facility] Ret[facility] Eye Exam (Diabetic)2018-04-19 05:00:00* Test Item Value Reference Range Interpretation Comments Negative Diabetic Eye Screening (test code = Negative Diabetic Eye Screening) [id number] [facility]] MICROALBUMIN, RANDOM URINE (W/CREATININE) 2018-03-14 00:00:00* Test [...] a patient to bewithin a diagnostic category. [facility]] LIPID [id number] 13:52:00* Test Item Value Reference Range Interpretation Comments CHOLESTEROL, TOTAL; Normal (test code = 2093-3) 192 mg/dl <200 N HDL CHOLESTEROL; Normal (test code = 2085-9) 49 mg/dl >40 N TRIGLYCERIDES; Above High Threshold (test code = 2571-8) 170 mg/dl <150 LDL-CHOLESTEROL; Above High Threshold (test code = 74118-6) 114 {MG/DL SAILAJA} Reference range: <100 Desirable range <1 00 mg/dL for primary prevention; <70 mg/dL for patients with CHD or diabetic patients with > or = 2 CHD risk factors. LDL-C is now calculated using the Salvador-Mendez calculation, which is a validated novel method providing better accuracy than the Friedewald equation in the estimation of LDL-C. Salvador SS et al. [place]. 2013;310(78): 6293-8760 (http ://education.[employer]imb[employer]/faq/YMY285) CHOL/HDLC RATIO (test code = CHOL/HDLC RATIO) 3.9 {CALC} <5.0 N NON HDL CHOLESTEROL (test code = NON HDL CHOLESTEROL) 143 {MG/DL C AL} <130 For patients with diabetes plus 1 major ASCVD risk factor, treating to a non-HDL-C goal of <100 mg/dL (LDL-C of <70 mg/dL) is considered a therapeutic option. [facility]] CMP [id number] 13:52:00* Test Item Value Reference Range Interpretation [...] is approximately 13% higher for peopleidentified as -Tajik. eGFR NON- (test code = eGFR NON-MOISES N SLOVAK) 72 {ML/MIN/1.7} > OR = 60 N [...] N BILIRUBIN, TOTAL; Normal (test code = 73317-6) 0.6 mg/dl 0.2-1.2 N ALKALINE PHSPHATASE (test code = ALKALINE PHSPHATASE) 53 u/l 40-115 N AST; Normal (test code = 1916-6) 17 u/l 10-35 N ALT; Normal (test code = 1742-6) 19 u/l 9-46 N [facility]] CBC (INCLUDES DIFF/PLT)2018-02-10 13:52:00* Test Item Value Reference Range Interpretation Comments WHITE BLOOD CELL COUNT (test code = WHITE BLOOD CELL COUNT) 6.1 {Thousand/u} 3.8-10.8 N RED BLOOD CELL COUNT (test code = RED BLOOD CELL COUNT) 5.13 {Million/uL} 4.20-5.80 N HEMOGLOBIN; Normal (test code = 07937-7) 14.7 g/dl 13.2-17.1 N HEMATOCRIT; Normal (test code = 4544-3) 43.1 % 38.5-50.0 N MCV; Normal (test code = 787-2) 84.0 fL 80.0-100.0 N MCHC; Normal (test code = 89593-5) 34.1 g/dl 32.0-36.0 N RDW; Normal (test code = 788-0) 13.4 % 11.0-15.0 N PLATELET COUNT; Normal (test code = 777-3) 212 {Thousand/u} 140-400 N MPV; Normal (test code = 31803-7) 10.9 fL 7.5-12.5 N ABSOLUTE NEUTROPHILS (test code = ABSOLUTE NEUTROPHILS) 4087 {cells/uL} 1754-3051 N ABSOLUTE LYMPHOCYTES (test code = ABSOLUTE [...] % N MONOCYTES; Normal (test code = 89690-3) 8.6 % N EOSINOPHILS; Normal (test code = 27079-6) 3.9 % N BASOPHILS; Normal (test code = 58649-3) 1.0 % N [facility]] TSH, 3RD [id number] 13:52:00* Test Item Value Reference Range Interpretation Comments TSH; Normal (test code = 45721-5) 1.48 {MIU/L} 0.40-4.50 N [facility]] HEMOGLOBIN [id number] 13:52:00* Test Item Value Reference Range Interpretation Comments HEMOGLOBIN A1c; Above High Threshold (test code = 4548-4) 6.8 {% of total} <5.7 For someone without known diabetes, a he moglobin W3ujgnfv of 6.5% or greater indicates that they [...] A1c for diagnosis of diabetes for children. [facility] PhysiciansTobacco Use [id number] 13:30:00* Test Item Value Reference Range Interpretation Comments Completed (test code = Completed) DONE [facility]] HEMOGLOBIN [id number] 13:49:00* Test Item Value Reference Range Interpretation Comments HEMOGLOBIN A1c; Above High Threshold (test code = 4548-4) 6.5 {% of total} <5.7 For someone without known diabetes, a he moglobin E4efhjdp of 6.5% or greater indicates that they [...] A1c for diagnosis of diabetes for children. [facility]icians[facility] Retinal Eye Exam (Diabetic)2017-04-05 05:00:00* Test Item Value Reference Range Interpretation Comments Negative Diabetic Eye Screening (test code = Negative Diabetic Eye Screening) [id number] [facility]
--- NOTE | 2020-02-05 15:38 | NUR ---
PT REFUSES COVID SWAB
--- NOTE | 2020-02-05 19:52 | NUR ---
spoke with Dr. Charles Cohen about patient wanting to sign out AMA. was advised to have patient sign paperwork and let the patient leave.
--- NOTE | 2020-02-06 16:20 | History and Physical ---
The patient signed out against medical advice in February 05, 2020. PRIMARY CARE PHYSICIAN: Jose Huggins MD CONSULTING PHYSICIAN: John Ford MD HISTORY OF PRESENT ILLNESS: The patient came to the hospital for chest pain. The patient had negative cardiac enzymes. His lab work otherwise unremarkable. Chest x-ray unremarkable. The patient has a negative cardiac enzyme, troponin I. The patient was seen by Dr. Wooten in the emergency room. Apparently, the patient signed out against medical advice. He was placed on observation, but he left. There was no further workup. Echocardiogram was not done. The patient signed out against medical advice. The patient was advised to follow up with Dr. Jose Huggins, his family physician and refer to a mineral technologist for stress test as an outpatient and other cardiac workup if not done so. The patient is otherwise stable, he is ambulatory. He was signed out against medical advice in the emergency room. LABORATORY DATA: Sodium is 139, potassium 4.6, chloride 105, bicarb 26, BUN 17, creatinine 1.2, glucose 275. WBC 7.5, hemoglobin 13.8, hematocrit 42.8, and platelets 202,000. AST 14, ALT 17, alkaline phosphate 58, total bilirubin 0.3. Troponin I is negative. Again, the patient signed out against medical advice. MD [facility] /[id number]
== END 2020-02-05 19:57 | disposition left against medical advice (07) ==
LOC: ER 11:30 → ERHOLD 15:15
PROVIDERS: ADMIT Internal Medicine; ATTEND Internal Medicine
DX: R07.9 Chest pain, unspecified (principal)
CPT/HCPCS: 36415; 71045; 80053; 82550; 82553; 83880; 84484; 85025; 87635; 93005; 99284; G0378